=== PATIENT | female | born 1995 | race African-American/Black ===

== ENCOUNTER 2019-07-19 07:15 | Inpatient (IN) | payer MEDICARE, MEDICAID, SELFPAY ==
[2019-07-19] VITALS (16 sets, daily range): BP systolic 103–144; BP diastolic 64–113; PULSE 68–134; RESP 14–28; TEMP 36.8–38.2; O2SAT 93–100
--- NOTE | ~2019-07-19 | XR_ITS ---
XR chest 1V portable DATE: 07/19/2019 08:36 INDICATION: Chest pain TECHNIQUE: Portable upright AP chest on 07/19/2019 at 0831 hours; gonadal shielding COMPARISON: 06/28/2019 portable AP chest at 0814 hours FINDINGS: Right Port-A-Cath catheter tip overlies the superior cavoatrial junction. Normal heart size . No hilar or mediastinal enlargement. There is mild infiltrate or atelectasis in the right lower lung zone. The lungs otherwise appear dank r. Minimal blunting of the right gastric angle may indicate slight right pleural effusion. The left c ostophrenic angle appears clear. No pulmonary vascular congestion or pneumothorax. IMPRESSION: Mild infiltrate or atelectasis in the right lower lung; cannot exclude minimal right pleu ral effusion Right Port-A-Cath Reviewed, dictated and finalized at location A. [facility] MANAGER IMPRESSION: Mild infiltrate or atelectasis in the right lower lung; cannot excl ude minimal right pleural effusion Right Port-A-Cath
--- NOTE | ~2019-07-19 | XR_ITS ---
EXAMINATION: XR hip LT min 2V EXAM DATE: 07/19/2019 19:32 INDICATION: Sickle cell crisis, left hip pain. TECHNIQUE: Each hip imaged independently (separate right and also left hip) 'frog leg' and frontal p rojections for interpretation. Right hip was imaged first by mistake, images retained. There is no prior study for comparison. FINDINGS: No radiographic evidence of hip avascular necrosis. There are no acute fractures or disloc ations identified. There is no subcutaneous gas. The soft tissue is unremarkable. There are no ra diopaque foreign bodies. IMPRESSION: Unremarkable hip exam. I tried phoning these results as requested by ordering doctor to evening Hospitalist. Reviewed, dictated and finalized at location A. [facility] IMPRESSION: Unremarkable hip exam. I tried phoning these results as requested by ordering doctor to evening Hospit ali.
[2019-07-19] MEDS: SODIUM CHLORIDE 0.9% IV 1,000 ML 999 ML IV CONT (07:50)
[2019-07-19 07:52] LABS: Hematocrit 21.8 % (37.0-47.0); Hemoglobin 7.1 g/dL (12.0-15.0); Immature Platelet Fraction Pct 5.2 % (0.9-11.2); Immature Reticulocyte Fraction 36.3 % (3.0-15.9); Mean Corpuscular HGB Conc 32.6 g/dl (32-36); Mean Corpuscular Hemoglobin 20.6 pg (26-34); Mean Corpuscular Volume 63.4 fl (80-100); Mean Platelet Volume 10.2 fl (7.4-10.4); Platelet Count Result 239 k/mm3 (150-375); Red Blood Count 3.44 M/mm3 (4.2-5.4); Red Cell Distribution Width 22.9 % (11.5-14.5); Reticulocyte Hemoglobin Conten 20.3 pg (28.2-35.7); Reticulocyte Percent 4.99 % (0.7-4.3); Reticulocytes Absolute 0.17 B/L (32.2-175.7); White Blood Count 15.6 K/mm3 (4.5-10.0)
[2019-07-19] MEDS: HYDROMORPHONE HCL 1 MG/ML INJ 2 MG IV PUSH ×4 (07:58→14:01)
[2019-07-19] MEDS: PROMETHAZINE HCL 25 MG/ML AMPUL 12.5 MG IV PUSH (07:58)
[2019-07-19 08:00] LABS: Partial Thromboplastin Time 31.4 SECONDS (22.3-36.8); Prothrombin Time 13.3 Seconds (11.1-14.7)
[2019-07-19 08:07] LABS: Lactate Dehydrogenase 892 U/L (313-618)
[2019-07-19 08:08] LABS: Eosinophils Absolute Manual 0.15 K/mm3 (0.02-0.5); Eosinophils Percent Manual 1 % (0-4); Monocytes Absolute Manual 1.09 K/mm3 (0.1-0.90); Monocytes Percent Manual 7 % (3-9); Neutrophils Percent Manual 67 % (46-73); Nucleated Red Blood Cells 20 %; Platelet Estimate Adequate (Adequate); Total Cells Counted 100
[2019-07-19 08:09] LABS: Alanine Aminotransferase 33 U/L (4-35); Albumin Level 4.1 g/dL (3.5-5.1); Alkaline Phosphatase 75 U/L (38-126); Anisocytosis 1+ (NORMAL); Aspartate Amino Transferase 46 U/L (14-36); Bilirubin,Total 1.2 mg/dL (0.2-1.3); Blood Urea Nitrogen 10 mg/dL (7-17); Calcium 8.8 mg/dL (8.4-10.2); Carbon Dioxide 25 mmol/L (22-30); Chloride 103 mmol/L (98-107); Estimated Glomerular Filt Rate > 60; Glucose 124 mg/dL (65-105); Hypochromasia 2+ (NORMAL); Poikilocytosis 2+ (NORMAL); Potassium 3.6 mmol/L (3.4-5.0); Sickle Cells 1+ (NORMAL); Sodium 136 mmol/L (137-145); Target Cells 2+ (NORMAL)
[2019-07-19 08:45] LABS: Troponin I < 0.012 ng/mL (0.000-0.034)
--- NOTE | 2019-07-19 09:09 | ED.GENADULT ---
HPI - General Adult General Chief complaint: Extremity Problem,Nontraumatic Stated complaint: sickle cell crisis Time Seen by Provider: 07/19/19 07:34 History of Present Illness HPI narrative: Patient is a 24 y/o AAF who p/w diffuse body. Has h/o sickle cell anemia. Follows with Dr. Kim. Has been here twice earlier this month. Compliant with home meds (hydroxyurea and oxycodone). Has been having flares due to cold weather, originally from [place]. Pain mainly located in the hips/thighs/shoulders but also involves the chest. No SOA/Cough/Fever at home. Sx started this morning abruptly. Anticoagulated due to h/o PE. Simple tasks such as sitting exacerbate her pain. Has been trying to keep moving because she is uncomfortable. Related Data Home Medications Medication Instructions Recorded Confirmed Xarelto 15 mg PO Q12H 06/28/19 07/19/19 folic acid 1 mg PO DAILY 06/28/19 07/19/19 hydroxyurea 500 mg PO Q12H 06/28/19 07/19/19 oxycodone 20 mg PO Q4H PRN 06/28/19 07/19/19 oxycodone [OxyContin] 20 mg PO Q12H 06/28/19 07/19/19 Allergies Allergy/AdvReac Type Severity Reaction Status Date / Time fentanyl Allergy Hives Verified 07/19/19 08:27 Review of Systems Review of Systems: All systems reviewed & are unremarkable except as noted in HPI and below Constitutional: Constitutional: Denies chills, Denies fever(s) and Denies weakness Cardiovascular: Cardiovascular: Reports chest pain and Denies radiating jaw, neck or arm pain Respiratory: Respiratory: Denies cough, Denies dyspnea and Denies wheezing Gastrointestinal: Gastrointestinal: Denies abdominal pain, Denies nausea and Denies vomiting Musculoskeletal: Musculoskeletal: Reports back pain, Reports myalgias, Reports arthralgias and Denies joint swelling [facility] Past Medical History Medical History Avascular necrosis of bones of both hips Constipation Eczema History of pulmonary embolus (PE) On Xarelto Port-A-Cath in place Right chest Pulmonary emboli Sickle cell anemia Surgical History Surgical History History of appendectomy History of cholecystectomy Family History Family History (Updated 07/19/19 @ 11:23 by Riccardo Herndon MD) Mother Sickle cell anemia Pulmonary embolism Social History Social History Social History: She is attending college here and is studying [employer]. 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 She has no children. She is single. She does not smoke or drink or use illicit drugs. Smoking status: Former smoker Second hand tobacco smoke exposure: Yes Additional smoking assessment comments: uncertain Alcohol intake: current Drinks per week: 1 Substance use: former Substance use type: marijuana Last use: unknown Gender identity (if verbalized by the patient): Female Spiritual care concerns: No Agree to blood products: Yes Exam Const: General: healthy appearing, well developed and alert Orientation/consciousness: patient oriented x3 Limitations: no limitations Other: Anxious and distressed. Tearful. HENMT: Head: normocephalic and atraumatic Ears: external ears normal General nose exam: Normal external nose present Mouth: Yes oropharynx normal and Yes moist mucous membranes Resp: Effort & Inspection: normal respiratory effort and able to speak in complete sentences Auscultation: clear to auscultation bilaterally Cardio: Rate: tachycardic Rhythm: regular rhythm Peripheral pulses: radial pulses present GI: GI Palp: Yes Soft to palpation, No Tenderness to palpation present (GI) and No Guarding due to palpation present (GI) Skin: General skin exam: normal color and no rashes or lesions noted Trauma: no lacerations or abrasions Wounds: no wounds Neuro: General: patient oriented x3 Speech: normal speech Extrem: G
[2019-07-19] MEDS: HYDROMORPHONE HCL 1 MG/ML INJ 4 MG IV PUSH (10:45)
--- NOTE | 2019-07-19 10:54 | PM.IMHP ---
H&P: HPI History of Present Illness Chief complaint: Sickle Cell Crisis Narrative: Jenny Cardenas is a 24 year old female with sickle cell disease and history of pulmonary embolus in April 2019 who was in her usual state of health until about 1:00 a.m. this morning. She awakened with pain in the lateral ribs upper arms thighs and ankles. It was 10/10 intensity. 220 mg oxycodone tablets gave her no relief so she called 911. Pain is described as DKA aching. Worse if she holds still. Better with movement. She had no fevers chills or sweats. No shortness of breath cough or congestion. No anterior chest pain no GI symptoms. No headaches. No weakness or numbness. No skin changes or rashes. She has chronic itching with her narcotic use. Review of Systems Review of Systems: All systems reviewed & are unremarkable except as noted in HPI and below PMFSH Past Medical History Medical History Avascular necrosis of bones of both hips Constipation Eczema History of pulmonary embolus (PE) On Xarelto Port-A-Cath in place Right chest Pulmonary emboli Sickle cell anemia Surgical History Surgical History History of appendectomy History of cholecystectomy Family History Family History (Updated 07/19/19 @ 11:23 by Riccardo Herndon MD) Mother Sickle cell anemia Pulmonary embolism Social History Social History (Updated 06/28/19 @ 13:49 by Minna Rodriguez NP) Social History: She is attending college here and is studying [employer]. 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 She has no children. She is single. She does not smoke or drink or use illicit drugs. Smoking status: Former smoker Second hand tobacco smoke exposure: Yes Additional smoking assessment comments: uncertain Alcohol intake: current Drinks per week: 1 Substance use: former Substance use type: marijuana Last use: unknown Gender identity (if verbalized by the patient): Female Spiritual care concerns: No Agree to blood products: Yes Meds Home Medications and Allergies Home Medications Medication Instructions Recorded Confirmed Type Xarelto 15 mg PO Q12H 06/28/19 06/28/19 History folic acid 1 mg PO DAILY 06/28/19 06/28/19 History hydroxyurea 500 mg PO Q12H 06/28/19 06/28/19 History oxycodone 20 mg PO Q4H PRN 06/28/19 06/28/19 History oxycodone [OxyContin] 20 mg PO Q12H 06/28/19 06/28/19 History Allergies Allergy/AdvReac Type Severity Reaction Status Date / Time fentanyl Allergy Hives Verified 07/19/19 08:27 Vital Signs Vital Signs - 24 hr 07/19/19 07:15 07/19/19 10:20 Temperature 99.1 F Pulse Rate 134 H 75 Respiratory Rate 28 H 16 Blood Pressure 140/94 H 105/68 Pulse Oximetry 100 100 Exam Narrative: Exam Narrative: HEENT: EOMI, PERRL, pharyngeal mucosa pink and intact NECK: No JVD, adenopathy, or thyromegaly CHEST: Clear to auscultation. Normal effort. HEART: NL S1/S2, regular, no murmur ABDOMEN: BS+, soft, nontender, no mass, no bruits EXTREMITIES: No cyanosis, edema, or clubbing. Carotids radials and dorsalis pedis pulses all intact. NEUROLOGIC: CN intact and symmetric to inspection. MUSCULOSKELETAL: Tone and strength symmetric. PSYCH: Alert. Oriented to person, place, and time. H&P: Results Labs Labs: Short CBC 07/19/19 Range/Units 07:45 WBC 15.6 H (4.5-10.0) K/mm3 Hgb 7.1 L (12.0-15.0) g/dL Hct 21.8 L (37.0-47.0) % Plt Count 239 (150-375) k/mm3 BMP 07/19/19 07:45 Sodium 136 L Potassium 3.6 Chloride 103 Carbon Dioxide 25 BUN 10 D Creatinine 0.40 L Glucose 124 H Calcium 8.8 Cardiac Enzymes 07/19/19 Range/Units 07:43 Troponin I < 0.012 (0.000-0.034) ng/mL Liver Function 07/19/19 Range/Units 07:45 Total Bilirubin 1.2 (0.2-1.3) mg/dL AST 46 H (14-36) U/L ALT 33 (4-35
--- NOTE | 2019-07-19 10:58 | ADMGEN ---
This patient, Jenny Cardenas, was admitted to [facility] Surg Room 319-01. Patient/family oriented to hospital policies and general routines including ID bracelet, bed and alarms, visiting hours, pain management, procedures, bathroom and other care routines, personal items, smoking policy, room service/diet, and visiting hours. Valuables list has been completed. Information on how to activate the Rapid Response Team has been discussed. Patient/Family are encouraged to report perceived risks to care and to ask questions if they do not understand what they are told or what they should do.
[2019-07-19] MEDS: SODIUM CHLORIDE 0.9% IV 1,000 ML 125 ML IV CONT (12:15)
[2019-07-19] MEDS: HYDROMORPHONE HCL 2 MG/ML VIAL IV PUSH (14:37)
[2019-07-19 17:17] LABS: Hematocrit 20.9 % (37.0-47.0); Hemoglobin 6.8 g/dL (12.0-15.0)
[2019-07-19 17:39] LABS: Beta HCG Quantitative < 2.39 mIU/ML
[2019-07-19] MEDS: LORAZEPAM INJ 2 MG/ML VIAL 1 MG IV PUSH (18:05)
[2019-07-19] MEDS: MORPHINE SULFATE 4 MG/ML INJ IV PUSH (19:00)
--- NOTE | 2019-07-19 20:39 | PC.NURSE ---
Notified Jute Bag Cutting Machine Operator Suzy that the patient states that she can't say no to consenting to blood consent even if she wanted to because the hospital will do what we want regardless. Patient assured that the only way we will administer blood if if she gives consent and we are able to check her vital signs as needed to check for reactions. Patient signed consent to receive blood transfusion but still very upset.
--- NOTE | 2019-07-19 20:43 | PC.NURSE ---
Pt stated at 1030 that no one knows how to treat sickle cell crisis. She wishes she had gone to her film composer at [facility]. I called Dr. Herndon to inform him of her pain. When I went back into the room, she was on her phone, repeatedly telling her mom to call the film composer. Pt screaming, writhing, yelling in pain saying it is past 10/10. I pushed a one time order of 4 of dilaudid and tried to proceed with admission at which point she was falling asleep during answers. Dr Herndon came in and asked her questions and noted her response to the pain meds. She was always able to alert and answer appropriately. At 12:15 pt was screaming and yelling in pain again. She stated this hospital doesnt know how to treat someone in sickle cell crisis. I tried to reassure her that we were doing our best to help bring her pain under control. She stated she wanted her legs cut off. I brought in her PRN 2 mg dilaudid. It appeared to have worked as she fell asleep again. Lab came into draw cultures, but they could only get one because she couldnt stay still. She said she would comply if I gave bendaryl (she had been itching most of the morning, but I was trying to space it from the dilaudid). She refused the blood culture. She continued to talk about pain and I again let her know we were doing what we could for her. She began screaming/crying again at 1320. I talked with pt who stated that something was very wrong, that none of her crises had made her like this. I called Dr. Herndon who ordered another 2 mg one time dose of dilaudid and discussed the possibility of a RAW CHEESE WORKER pump if this didnt work. She was awake, screaming and crying even with this dose of dilaudid. At 1425 I talked with Katrina face to face; we discussed giving another dose of the PRN dilaudid and he would see her after one other patient. I gave the PRN dilaudid at 1437 and Katrina came in. He was empathetic to her and let her know that we would do an XRAY to evaluate the hip. The dilaudid did not seem to have any effect on her pain level. I let Dr. Herndon know and he put in orders for a morphine RAW CHEESE WORKER. I set it up with Suzie co-signing. The pt continued to talk about how were not treating her pain, and I let her know that when we got this in place she could help manage her pain. When checking on her for the hourly roundings, the pt did not seem to have any adverse effects, but continued to rate her pain high. I reminded her to press her button and that we were also providing relief through continuous dosing. Pt continued to stated that something was wrong and that something was in her hip. Pt started refusing vitals at 1630 when we needed to round on the medicine's effectiveness and POSS score. Critical H&H called to Dr. Herndon who order 2 units of blood. I informed the patient in order to give blood we would need to be able to get vitals to monitor her reaction. She said get my pain under control and you can take my vitals. I assured her we were still trying, reminded educating her to push her button. Dr. Herndon ordered ativan to help calm her nerves to see if she would comply with vitals. At 1845, she allowed Lincoln to take a set of vitals.
[2019-07-19] MEDS: POTASSIUM CHLORIDE INJ 40 MEQ in DEXTROSE 5% IN WATER 500 ML 130 ML IVPB (21:02)
--- NOTE | 2019-07-19 21:29 | PC.NURSE ---
Addendum entered by Suzy Mahmood RN 07/19/19 22:01: Patient declined to be contacted by patient advocate and refused to file formal complaint. Original Note: Asked to speak with patient to ensure she understood her rights and her ability to refuse treatment. Upon arrival to room, patient resting comfortably in bed. When asked if she had concerns about her care, patient stated all of you nurses and doctors think you know it all because you went to school . Patient upset because at home in [place], they know how to treat people with sickle cell disease . Patient stated that she has been dealing with her disease for 23 years and all of you think you know what is best . Patient feels that she is classified as a drug seeker because of her disease. Patient stated, all of you automatically think people with sickle cell are drug seekers . Patient assumed that because all of you have seen patients with sickle cell disease, we classify her the same and always have that thought in the back of your head . Patient stated patients with sickle cell disease are not treated as humans . Assured patient that appropriate treatment would be administered and that she also had the right to refuse treatment if she felt it was not appropriate. Asked patient if she felt she needed other treatment and if her pain was under control. Patient stated she did need further pain management. IAN Barbosa notified and will contact provider for additional orders.
--- NOTE | 2019-07-19 22:00 | PC.NURSE ---
Patient initially agreed to take her 1700 dose of Xarelto and her 2100 dose of Hydroxyurea but after a while she refused to take the pills because she hasn't eaten all day and isn't feeling well enough to eat anything right now.
[2019-07-20] VITALS (16 sets, daily range): BP systolic 105–152; BP diastolic 60–87; PULSE 18–100; RESP 16–99; TEMP 36.6–37.5; O2SAT 92–99
[2019-07-20 00:09] LABS: Add Urine Microscopic? NO; Appearance Urine Clear (Clear); Bilirubin Urine Negative (Negative); Blood Urine Negative (Negative); Color Urine Straw (Yellow); Glucose Urine UA Negative (Negative); Ketones Urine Negative (Negative); Leukocyte Esterase Ur Negative LEU/UL (Negative); Nitrate Urine Negative (Negative); Protein Urine Negative (Negative); Specific Grav Ur 1.008 (1.001-1.035); Urobilinogen Urine Negative mg/dL (<2.0)
[2019-07-20] MEDS: SODIUM CHLORIDE 0.9% IV 1,000 ML 125 ML IV CONT ×3 (01:15→20:21)
--- NOTE | 2019-07-20 06:24 | PC.NURSE ---
Patient refused to have her BP taken this morning because it would hurt her too much. Advised patient to use the EVIDENCE TECHNICIAN button in preparation for the BP reading but patient still refused. Reminded patient that her BP will have to be monitored when she receives the blood transfusion.
--- NOTE | 2019-07-20 10:14 | PC.NURSE ---
Patient refused medications this AM. Patient has orders to start blood. The patient agreed to have vitals taken but cried out in pain when the blood pressure cuff tightened and I was forced to remove it. I explained to the patient the importance of getting blood and the necessity of taking vitals beforehand. The patient still refused vitals to be taken. Dr. Herndon has been notified and no new orders have been given at this time.
--- NOTE | 2019-07-20 11:19 | PM.IMPN ---
Progress Note: A&P Assessment and Plan (1) Sickle cell crisis: Code(s): D57.00 - Hb-SS disease with crisis, unspecified Status: Acute Assessment and Plan: No sign of infection. Leukocytosis is likely demargination due to severe pain. Blood cultures pending. 07/19 PM Morphine WOOD GANG SAWYER at 1mg/hr with 0.8mg bolus q 10 min prn and 20mg max over 4 hours 07/19 hip x-rays without evidence for avascular necrosis 07/20 Increase morphine WOOD GANG SAWYER to 2mg/hr with 1mg bolus q 6 min prn and 24mg max over 4 hours (after 4mg IV bolus x 1) (2) History of pulmonary embolus (PE): Code(s): Z86.711 - Personal history of pulmonary embolism Status: Chronic Assessment and Plan: Continue Xarelto Subjective Date/time seen: 07/20/19 11:19 Interval history: Admitted 07/19 with SS crisis. Pain in arms, legs, lateral ribs. 07/20 not eating. Holding urine to minimize movement. Pain minimally improved. She recalls that previously WOOD GANG SAWYER was hydromorphone at 0.5mg/hr with 1mg bolus. Review of Systems Review of Systems: All systems reviewed & are unremarkable except as noted in HPI and below Exam Narrative: Exam Narrative: HEENT: EOMI, PERRL, pharyngeal mucosa pink and intact NECK: No JVD CHEST: Clear to auscultation. Normal effort. HEART: NL S1/S2, regular, no murmur ABDOMEN: BS+, soft, nontender, no mass, no bruits EXTREMITIES: No cyanosis, edema, or clubbing. Carotids radials and dorsalis pedis pulses all intact. NEUROLOGIC: CN intact and symmetric to inspection. MUSCULOSKELETAL: Tone and strength symmetric. PSYCH: Alert. Oriented to person, place, and time. Objective Data Vital Signs Vital Signs: Vital Signs - 24 hr 07/19/19 14:00 07/19/19 15:29 07/19/19 16:00 Temperature 99.8 F H 99.5 F Pulse Rate 75 88 Respiratory Rate 18 24 H 18 Blood Pressure 144/113 H Pulse Oximetry 93 99 100 07/19/19 16:30 07/19/19 18:51 07/19/19 19:07 Temperature 100.7 F H 100.7 F H Pulse Rate 96 Respiratory Rate 26 H 16 Blood Pressure 136/72 Pulse Oximetry 96 100 07/19/19 19:40 07/19/19 20:00 07/19/19 21:11 Temperature 100.3 F H 100.0 F H Pulse Rate 97 101 H Respiratory Rate 18 Blood Pressure 132/64 Pulse Oximetry 100 07/19/19 21:26 07/19/19 22:07 07/20/19 00:00 Temperature 99.3 F 99.1 F Pulse Rate 89 88 Respiratory Rate 18 Blood Pressure 114/80 Pulse Oximetry 99 07/20/19 04:00 07/20/19 06:23 07/20/19 09:52 Temperature 99.4 F Pulse Rate 91 97 Respiratory Rate 16 Blood Pressure Pulse Oximetry 98 94 Intake/Output Intake/Output: Intake & Output 07/17/19 07/18/19 07/19/19 07/20/19 23:59 23:59 23:59 23:59 Intake Total 2123.0 1228.5 Output Total 1900 Balance 2123.0 -671.5 Meds/Results Medications: Active Medications Generic Name Dose Route Start Last Admin Trade Name Freq PRN Reason Stop Dose Admin Acetaminophen 1,000 mg 07/19/19 14:39 Tylenol Tablet PO TID PRN Mild Pain (1-3) or Fever Diphenhydramine HCl 25 mg 07/19/19 11:15 07/19/19 22:26 Benadryl Inj IV PUSH 25 mg Q4H PRN Administration Itching Folic Acid 1 mg 07/20/19 09:00 Folic Acid PO DAILY CHRISTINA Hydroxyurea 500 mg 07/19/19 21:00 07/20/19 02:13 Hydrea PO Not Given Q12HR CHRISTINA Sodium Chloride 1,000 mls @ 125 mls/hr 07/19/19 09:25 07/20/19 05:19 Normal Saline Iv IV CONT 125 mls/hr .Q8H CHRISTINA Infusion Morphine Sulfate 30 mg in 30 mls @ 1 mls/hr 07/19/19 14:32 07/20/19 05:30 Morphine Sulfate Orange Picking Supervisor IV CONT 1 mls/hr .Q24H PRN 1 mls/hr WOOD GANG SAWYER Management Titration Protocol Per Protocol Lorazepam 1 mg 07/19/19 18:53 Ativan Inj IV PUSH Q6H PRN Anxiety Morphine Sulfate 4 mg 07/20/19 11:18 Morphine Sulfate Inj IV PUSH 07/20/19 11:19 ONCE ONE Multi-Ingredient Lotion 1 each 07/19/19 17:00 07/19/19 18:09 Lubriderm Lotion TOPICAL Not Given BID CHRISTINA Naloxone HCl 0.1 mg 07/19
[2019-07-20] MEDS: RIVAROXABAN 20 MG TABLET PO (17:41)
[2019-07-20] MEDS: LORAZEPAM INJ 2 MG/ML VIAL 1 MG IV PUSH (20:30)
[2019-07-20 21:26] LABS: Hematocrit 23.9 % (37.0-47.0); Hemoglobin 7.7 g/dL (12.0-15.0); Immature Platelet Fraction Pct 4.8 % (0.9-11.2); Mean Corpuscular HGB Conc 32.2 g/dl (32-36); Mean Corpuscular Hemoglobin 21.2 pg (26-34); Mean Corpuscular Volume 65.8 fl (80-100); Mean Platelet Volume 10.2 fl (7.4-10.4); Platelet Count Result 256 k/mm3 (150-375); Red Blood Count 3.63 M/mm3 (4.2-5.4); Red Cell Distribution Width 25.9 % (11.5-14.5); White Blood Count 9.4 K/mm3 (4.5-10.0)
[2019-07-20 21:35] LABS: Alanine Aminotransferase 25 U/L (4-35); Albumin Level 3.8 g/dL (3.5-5.1); Alkaline Phosphatase 62 U/L (38-126); Aspartate Amino Transferase 35 U/L (14-36); Bilirubin,Total 1.5 mg/dL (0.2-1.3); Blood Urea Nitrogen 5 mg/dL (7-17); Calcium 8.6 mg/dL (8.4-10.2); Carbon Dioxide 28 mmol/L (22-30); Chloride 99 mmol/L (98-107); Estimated CRCL calculation 168 ml/min; Estimated Glomerular Filt Rate > 60; Glucose 87 mg/dL (65-105); Lactate Dehydrogenase 976 U/L (313-618); Potassium 3.2 mmol/L (3.4-5.0); Sodium 135 mmol/L (137-145)
[2019-07-20] MEDS: HYDROXYUREA (*CHEMO) 500 MG CAPSULE PO (22:17)
[2019-07-20] MEDS: TUBING, BLOOD PLUM PUMP TUBING 1 EACH XX (23:00)
[2019-07-21] VITALS (15 sets, daily range): BP systolic 108–110; BP diastolic 65–70; PULSE 71–89; RESP 16; TEMP 36.6–37.2; O2SAT 96–99
[2019-07-21] MEDS: LORAZEPAM INJ 2 MG/ML VIAL 1 MG IV PUSH ×4 (04:00→21:59)
[2019-07-21] MEDS: SODIUM CHLORIDE 0.9% IV 1,000 ML 125 ML IV CONT ×3 (04:06→20:09)
[2019-07-21] MEDS: SODIUM CHLORIDE 0.9% IV 250 ML 30 ML (04:07)
[2019-07-21 06:36] LABS: Hematocrit 24.9 % (37.0-47.0); Hemoglobin 8.2 g/dL (12.0-15.0); Immature Platelet Fraction Pct 4.8 % (0.9-11.2); Immature Reticulocyte Fraction 40.9 % (3.0-15.9); Mean Corpuscular HGB Conc 32.9 g/dl (32-36); Mean Corpuscular Hemoglobin 22.5 pg (26-34); Mean Corpuscular Volume 68.2 fl (80-100); Mean Platelet Volume 9.7 fl (7.4-10.4); Platelet Count Result 218 k/mm3 (150-375); Red Blood Count 3.65 M/mm3 (4.2-5.4); Red Cell Distribution Width 27.4 % (11.5-14.5); Reticulocyte Hemoglobin Conten 20.7 pg (28.2-35.7); Reticulocyte Percent 4.77 % (0.7-4.3); Reticulocytes Absolute 0.17 B/L (32.2-175.7); White Blood Count 9.3 K/mm3 (4.5-10.0)
[2019-07-21 06:45] LABS: Alanine Aminotransferase 21 U/L (4-35); Albumin Level 3.2 g/dL (3.5-5.1); Alkaline Phosphatase 58 U/L (38-126); Aspartate Amino Transferase 30 U/L (14-36); Bilirubin,Total 1.1 mg/dL (0.2-1.3); Blood Urea Nitrogen 5 mg/dL (7-17); Calcium 8.1 mg/dL (8.4-10.2); Carbon Dioxide 25 mmol/L (22-30); Chloride 104 mmol/L (98-107); Estimated CRCL calculation 214 ml/min; Estimated Glomerular Filt Rate > 60; Glucose 102 mg/dL (65-105); Lactate Dehydrogenase 827 U/L (313-618); Potassium 3.4 mmol/L (3.4-5.0); Sodium 136 mmol/L (137-145)
--- NOTE | 2019-07-21 08:50 | PM.IMPN ---
Progress Note: A&P Assessment and Plan (1) Sickle cell crisis: Code(s): D57.00 - Hb-SS disease with crisis, unspecified Status: Acute Assessment and Plan: No sign of infection. Leukocytosis is likely demargination due to severe pain. Blood cultures pending. 07/19 PM Morphine BULK PIGMENT REDUCER at 1mg/hr with 0.8mg bolus q 10 min prn and 20mg max over 4 hours 07/19 hip x-rays without evidence for avascular necrosis 07/20 Increase morphine BULK PIGMENT REDUCER to 2mg/hr with 1mg bolus q 6 min prn and 24mg max over 4 hours (after 4mg IV bolus x 1) 07/20 PM Increase morphine BULK PIGMENT REDUCER to 3mg/hr 07/21 hgb 8.1 after 1 U PRBC 07/20, AST 30, bili 1.1, LDH 827, retic% 4.77 (trending down) 07/21 Increase morphine BULK PIGMENT REDUCER to 4mg/hr, 2mg bolus q 6 min prn, 30mg 4 hour lockout (2) History of pulmonary embolus (PE): Code(s): Z86.711 - Personal history of pulmonary embolism Status: Chronic Assessment and Plan: Continue Xarelto Subjective Date/time seen: 07/21/19 08:50 Interval history: Admitted 07/19 with SS crisis. Pain in arms, legs, lateral ribs. 07/20 not eating. Holding urine to minimize movement. Pain minimally improved. She recalls that previously BULK PIGMENT REDUCER was hydromorphone at 0.5mg/hr with 1mg bolus. 07/21 Pain still 8 on morphine 3mg/hr with 1mg bolus q 6 min prn and 24mg 4 hour lockout. Still c/o not sleeping well. Deep ache in thighs, arms, bilateral ribs. Tolerated transfusion. Tolerated diet. Review of Systems Review of Systems: All systems reviewed & are unremarkable except as noted in HPI and below Exam Narrative: Exam Narrative: HEENT: EOMI, PERRL, pharyngeal mucosa pink and intact NECK: No JVD CHEST: Clear to auscultation. Normal effort. HEART: NL S1/S2, regular, no murmur ABDOMEN: BS+, soft, nontender, no mass, no bruits EXTREMITIES: No cyanosis, edema, or clubbing. Carotids radials and dorsalis pedis pulses all intact. NEUROLOGIC: CN intact and symmetric to inspection. MUSCULOSKELETAL: Tone and strength symmetric. PSYCH: Alert. Oriented to person, place, and time. Objective Data Vital Signs Vital Signs: Vital Signs - 24 hr 07/20/19 09:52 07/20/19 12:00 07/20/19 14:00 Temperature 97.8 F Pulse Rate 92 93 Respiratory Rate 18 Blood Pressure 152/87 H Pulse Oximetry 94 98 07/20/19 15:06 07/20/19 15:27 07/20/19 16:00 Temperature 98.1 F 98.5 F Pulse Rate 99 94 100 Respiratory Rate 16 18 Blood Pressure 118/64 119/87 Pulse Oximetry 99 07/20/19 16:27 07/20/19 17:27 07/20/19 20:00 Temperature 98.1 F 99.5 F Pulse Rate 18 L 90 78 Respiratory Rate 99 H 18 18 Blood Pressure 110/74 110/70 Pulse Oximetry 92 99 98 07/20/19 22:00 07/20/19 23:38 07/20/19 23:54 Temperature 99.5 F 99.5 F Pulse Rate 72 70 Respiratory Rate 18 18 Blood Pressure 105/60 105/66 108/66 Pulse Oximetry 98 98 07/21/19 00:00 07/21/19 00:54 07/21/19 01:54 Temperature 99.0 F Pulse Rate 89 78 Respiratory Rate Blood Pressure 110/65 110/65 110/70 Pulse Oximetry 07/21/19 04:00 07/21/19 06:00 Temperature 98.4 F Pulse Rate 85 81 Respiratory Rate Blood Pressure 110/70 Pulse Oximetry Intake/Output Intake/Output: Intake & Output 07/18/19 07/19/19 07/20/19 07/21/19 23:59 23:59 23:59 23:59 Intake Total 2123.0 3802.1 1867 Output Total 3900 1400 Balance 2123.0 -97.9 467 Meds/Results Medications: Active Medications Generic Name Dose Route Start Last Admin Trade Name Freq PRN Reason Stop Dose Admin Acetaminophen 1,000 mg 07/19/19 14:39 Tylenol Tablet PO TID PRN Mild Pain (1-3) or Fever Diphenhydramine HCl 25 mg 07/19/19 11:15 07/21/19 08:05 Benadryl Inj IV PUSH 25 mg Q4H PRN Administration Itching Folic Acid 1 mg 07/20/19 09:00 07/20/19 15:15 Folic Acid PO Not Given DAILY REPLACED BY [facility] Heparin Sodium (Beef Lung) 50 units 07/21/19 09:00 Heparin Flush 50 Units/5 Ml IV PUSH QAM REPLACED BY [facility] Heparin Sodium (Beef Lung) 50 units 07/21/19 07:32
[2019-07-21] MEDS: HYDROXYUREA (*CHEMO) 500 MG CAPSULE PO ×2 (08:59→20:09)
[2019-07-21] MEDS: FOLIC ACID 1 MG TABLET PO (09:05)
--- NOTE | 2019-07-21 12:25 | PCNSR ---
On 07/21/19, the student, Rosa Tovar, provided care and completed [facility] documentation on this patient. I have reviewed the student's documentation and agree with the findings.
[2019-07-21] MEDS: RIVAROXABAN 20 MG TABLET PO (17:27)
[2019-07-22] VITALS (8 sets, daily range): BP systolic 100–107; BP diastolic 52–73; PULSE 71–103; RESP 16–20; TEMP 36.6–37; O2SAT 94–100
[2019-07-22] MEDS: SODIUM CHLORIDE 0.9% IV 1,000 ML 125 ML IV CONT ×3 (03:54→21:30)
[2019-07-22] MEDS: LORAZEPAM INJ 2 MG/ML VIAL 1 MG IV PUSH ×4 (03:55→21:30)
[2019-07-22 06:04] LABS: Hematocrit 25.2 % (37.0-47.0); Hemoglobin 8.3 g/dL (12.0-15.0); Mean Corpuscular HGB Conc 32.9 g/dl (32-36); Mean Corpuscular Volume 66.8 fl (80-100); Mean Platelet Volume 9.1 fl (7.4-10.4); Platelet Count Result 229 k/mm3 (150-375); Red Blood Count 3.77 M/mm3 (4.2-5.4); Red Cell Distribution Width 26.7 % (11.5-14.5); White Blood Count 7.5 K/mm3 (4.5-10.0)
[2019-07-22 06:09] LABS: Alanine Aminotransferase 20 U/L (4-35); Albumin Level 3.6 g/dL (3.5-5.1); Alkaline Phosphatase 65 U/L (38-126); Aspartate Amino Transferase 28 U/L (14-36); Bilirubin,Total 1.1 mg/dL (0.2-1.3); Blood Urea Nitrogen 4 mg/dL (7-17); Calcium 8.7 mg/dL (8.4-10.2); Carbon Dioxide 26 mmol/L (22-30); Chloride 102 mmol/L (98-107); Estimated CRCL calculation 168 ml/min; Estimated Glomerular Filt Rate > 60; Glucose 90 mg/dL (65-105); Lactate Dehydrogenase 768 U/L (313-618); Potassium 3.7 mmol/L (3.4-5.0); Sodium 136 mmol/L (137-145)
[2019-07-22] MEDS: HYDROXYUREA (*CHEMO) 500 MG CAPSULE PO ×2 (09:53→21:31)
[2019-07-22] MEDS: FOLIC ACID 1 MG TABLET PO (09:53)
--- NOTE | 2019-07-22 16:23 | PM.IMPN ---
Progress Note: A&P Assessment and Plan (1) Sickle cell crisis: Code(s): D57.00 - Hb-SS disease with crisis, unspecified Status: Acute Assessment and Plan: No sign of infection. Leukocytosis is likely demargination due to severe pain. Blood cultures pending. 07/19 PM Morphine DOG SITTER at 1mg/hr with 0.8mg bolus q 10 min prn and 20mg max over 4 hours 07/19 hip x-rays without evidence for avascular necrosis 07/20 Increase morphine DOG SITTER to 2mg/hr with 1mg bolus q 6 min prn and 24mg max over 4 hours (after 4mg IV bolus x 1) 07/20 PM Increase morphine DOG SITTER to 3mg/hr 07/21 hgb 8.1 after 1 U PRBC 07/20, AST 30, bili 1.1, LDH 827, retic% 4.77 (trending down) 07/21 Increase morphine DOG SITTER to 4mg/hr, 2mg bolus q 6 min prn, 30mg 4 hour lockout 07/22 CPM possible minimally better, LDH and retic (2) History of pulmonary embolus (PE): Code(s): Z86.711 - Personal history of pulmonary embolism Status: Chronic Assessment and Plan: Continue Xarelto Subjective Date/time seen: 07/22/19 16:23 Interval history: Date of visit 07/21/19 Admitted 07/19 with SS crisis. Pain in arms, legs, lateral ribs. 07/20 not eating. Holding urine to minimize movement. Pain minimally improved. She recalls that previously DOG SITTER was hydromorphone at 0.5mg/hr with 1mg bolus. 07/21 Pain still 8 on morphine 4mg/hr with 1mg bolus q 6 min prn and 24mg 4 hour lockout. Still c/o not sleeping well. Deep ache in thighs, arms, bilateral ribs. Tolerated transfusion. Tolerated diet. Exam Narrative: Exam Narrative: Blood pressure 106/55 afebrile HEENT: EOMI, PERRL, sclera anicteric NECK: No JVD CHEST: Clear to auscultation. Normal effort. HEART: NL S1/S2, regular, no murmur ABDOMEN: BS+, soft, nontender, no mass, no bruits EXTREMITIES: No cyanosis, edema, or clubbing. Carotids radials and dorsalis pedis pulses all intact. NEUROLOGIC: CN intact and symmetric to inspection. MUSCULOSKELETAL: Tone and strength symmetric. PSYCH: Alert. Oriented to person, place, and time. Objective Data Vital Signs Vital Signs: Vital Signs - 24 hr 07/21/19 20:00 07/21/19 23:35 07/22/19 00:00 Temperature Pulse Rate 71 Respiratory Rate 16 16 Blood Pressure Pulse Oximetry 99 98 07/22/19 03:57 07/22/19 04:00 07/22/19 08:00 Temperature 36.6 C Pulse Rate 76 90 Respiratory Rate 16 20 Blood Pressure 102/60 Pulse Oximetry 98 98 07/22/19 10:00 07/22/19 14:00 Temperature 37.0 C Pulse Rate 87 85 Respiratory Rate 17 17 Blood Pressure 107/73 106/55 L Pulse Oximetry 100 100 Intake/Output Intake/Output: Intake & Output 07/19/19 07/20/19 07/21/19 07/22/19 23:59 23:59 23:59 23:59 Intake Total 2123.0 3802.1 4877 3100 Output Total 3900 2825 1700 Balance 2123.0 -97.9 2052 1400 Meds/Results Medications: Active Medications Generic Name Dose Route Start Last Admin Trade Name Freq PRN Reason Stop Dose Admin Acetaminophen 1,000 mg 07/19/19 14:39 Tylenol Tablet PO TID PRN Mild Pain (1-3) or Fever Diphenhydramine HCl 25 mg 07/19/19 11:15 07/22/19 15:20 Benadryl Inj IV PUSH 25 mg Q4H PRN Administration Itching Folic Acid 1 mg 07/20/19 09:00 07/22/19 09:53 Folic Acid PO 1 mg DAILY CHRISTINA Administration Heparin Sodium (Beef Lung) 50 units 07/21/19 09:00 07/22/19 10:52 Heparin Flush 50 Units/5 Ml IV PUSH Not Given QAM CHRISTINA Heparin Sodium (Beef Lung) 50 units 07/21/19 07:32 Heparin Flush 50 Units/5 Ml IV PUSH PRN PRN after intermittent infusion Heparin Sodium (Beef Lung) 50 units 07/21/19 07:32 Heparin Flush 50 Units/5 Ml IV PUSH PRN PRN after blood draws Heparin Sodium (Porcine) 500 units 07/21/19 07:32 Heparin Sod Flush 100 Units/Ml IV PUSH PRN PRN see comments below Hydroxyurea 500 mg 07/19/19 21:00 07/22/19 09:53 Hydrea PO 500 mg Q12HR CHRISTINA Administration Sodium Chloride 1,000 mls @ 125 mls/hr 07/19/19 09:25 07/22/19
[2019-07-22] MEDS: RIVAROXABAN 20 MG TABLET PO (17:27)
[2019-07-23] VITALS: RESP 16; O2SAT 94
[2019-07-23] MEDS: LORAZEPAM INJ 2 MG/ML VIAL 1 MG IV PUSH ×2 (03:02→09:44)
[2019-07-23 04:00] VITALS: RESP 16; O2SAT 99
[2019-07-23] MEDS: SODIUM CHLORIDE 0.9% IV 1,000 ML 125 ML IV CONT (05:28)
[2019-07-23 05:56] LABS: Alanine Aminotransferase 22 U/L (4-35); Albumin Level 3.9 g/dL (3.5-5.1); Alkaline Phosphatase 68 U/L (38-126); Aspartate Amino Transferase 31 U/L (14-36); Bilirubin,Total 1.1 mg/dL (0.2-1.3); Blood Urea Nitrogen 7 mg/dL (7-17); Calcium 9.1 mg/dL (8.4-10.2); Carbon Dioxide 27 mmol/L (22-30); Chloride 99 mmol/L (98-107); Estimated CRCL calculation 168 ml/min; Estimated Glomerular Filt Rate > 60; Glucose 99 mg/dL (65-105); Lactate Dehydrogenase 739 U/L (313-618); Potassium 3.9 mmol/L (3.4-5.0); Sodium 135 mmol/L (137-145)
[2019-07-23 06:05] LABS: Hemoglobin 8.3 g/dL (12.0-15.0); Immature Platelet Fraction Pct 4.7 % (0.9-11.2); Immature Reticulocyte Fraction 20.8 % (3.0-15.9); Mean Corpuscular HGB Conc 31.9 g/dl (32-36); Mean Corpuscular Hemoglobin 21.8 pg (26-34); Mean Corpuscular Volume 68.2 fl (80-100); Platelet Count Result 235 k/mm3 (150-375); Red Blood Count 3.81 M/mm3 (4.2-5.4); Red Cell Distribution Width 26.9 % (11.5-14.5); Reticulocyte Hemoglobin Conten 19.6 pg (28.2-35.7); Reticulocyte Percent 2.82 % (0.7-4.3); Reticulocytes Absolute 0.11 B/L (32.2-175.7); White Blood Count 7.1 K/mm3 (4.5-10.0)
[2019-07-23 08:00] VITALS: RESP 16; O2SAT 99
[2019-07-23] MEDS: HYDROXYUREA (*CHEMO) 500 MG CAPSULE PO (09:47)
[2019-07-23] MEDS: FOLIC ACID 1 MG TABLET PO (09:47)
[2019-07-23 11:42] VITALS: BP 105/86; PULSE 100; RESP 16; TEMP 37; O2SAT 100
[2019-07-23] MEDS: HEPARIN SOD FLUSH 500 UNITS/5 ML SYRINGE IV PUSH (12:08)
--- NOTE | 2019-07-23 18:31 | PM.DS ---
DS: Diagnosis Admitting Diagnosis Admitting Diagnosis: Hb-SS disease with crisis, unspecified Discharge Diagnosis (1) Sickle cell crisis: Code(s): D57.00 - Hb-SS disease with crisis, unspecified Status: Acute Assessment and Plan: No sign of infection. Leukocytosis is likely demargination due to severe pain. Blood cultures pending. 07/19 PM Morphine COMMUNITY RELATIONS REP at 1mg/hr with 0.8mg bolus q 10 min prn and 20mg max over 4 hours 07/19 hip x-rays without evidence for avascular necrosis 07/20 Increase morphine COMMUNITY RELATIONS REP to 2mg/hr with 1mg bolus q 6 min prn and 24mg max over 4 hours (after 4mg IV bolus x 1) 07/20 PM Increase morphine COMMUNITY RELATIONS REP to 3mg/hr 07/21 hgb 8.1 after 1 U PRBC 07/20, AST 30, bili 1.1, LDH 827, retic% 4.77 (trending down) 07/21 Increase morphine COMMUNITY RELATIONS REP to 4mg/hr, 2mg bolus q 6 min prn, 30mg 4 hour lockout 07/22 CPM possible minimally better, LDH and retic 07/23 patient continues to improve and affect much better. Up walking the halls and hemoglobin stable at 8.3 with reticulocyte count lower and LDH down to 735. Patient requesting to be discharged with recent in her family. She seems stable in her pain seems much better today. She states she has adequate oral pain medication at home and will discharge her home. (2) History of pulmonary embolus (PE): Code(s): Z86.711 - Personal history of pulmonary embolism Status: Chronic Assessment and Plan: Continue Xarelto 20 mg daily. DS: Summary Hospital Course Hospital Course: 24-year-old black female with sickle cell anemia admitted in crisis with no obvious precipitating factor. Slowly improved with hydration and narcotic pain control. Hemoglobin stabilized at 8.3, she was up about taken a diet well and able to be discharged on the She will follow-up with her capital campaign fundraiser Dr. Kim Time Spent with Patient Time attestation: Total time spent providing and/or coordinating discharge services: 35 minutes Exam Narrative: Exam Narrative: Condition on discharge: Blood pressure 104/56 pulse is 60 Pupils equal reactive to light sclera anicteric Lungs clear CV regular rate rhythm Abdomen soft nontender Extremities trace edema if any in the in the feet Neuro alert cooperative more pleasant today, affect DS: Data Data Completed and Pending Labs on day of discharge: Labs from last 24 hours 07/23/19 07/23/19 05:27 05:27 WBC 7.1 RBC 3.81 L Hgb 8.3 L Hct 26.0 L MCV 68.2 L MCH 21.8 L MCHC 31.9 L RDW 26.9 H Plt Count 235 MPV 10.0 % Immature Plt Fraction 4.7 Absolute Retic 0.11 L Percent Retic 2.82 Immature Retic Fraction 20.8 H Retic Hgb Content 19.6 L Sodium 135 L Potassium 3.9 Chloride 99 Carbon Dioxide 27 BUN 7 Creatinine 0.40 L Estim Creat Clear Calc 168 Estimated GFR > 60 Glucose 99 Calcium 9.1 Total Bilirubin 1.1 AST 31 ALT 22 Alkaline Phosphatase 68 Lactate Dehydrogenase 739 H Total Protein 8.0 Albumin 3.9 Preliminary micro results at discharge 07/19/19 16:50 Blood Culture - Preliminary Blood 07/19/19 12:10 Blood Culture - Preliminary Blood Discharge Plan Discharge Attending physician on discharge: Sae Lora Discharging Clinician: Sae Lora Patient Disposition: Home, Self-Care Activity: as tolerated Diet: regular Patient Instructions: Antibiotic Form, Pain Management (DC), Sickle Cell Crisis (DC) Stand Alone Forms: General Discharge Information Follow-up/Referrals: UNKNOWN,DOCTOR [Primary Care Provider] - 2 Weeks Discharge Medications: New Xarelto 20 mg Tablet 20 mg PO DAILY@1700 Qty: 30 RF: 0 Continued hydroxyurea 500 mg Capsule 500 mg PO Q12H RF: 0 folic acid 1 mg Tablet 1 mg PO DAILY RF: 0 oxycodone 20 mg Tablet 20 mg PO Q4H PRN (Reason: Pain) RF: 0 oxycodone [OxyContin] 20 mg Tablet,Oral Only,Ext.Rel.12 Hr 20 mg PO Q12H RF: 0 Discontinued Xarelto
== END 2019-07-23 12:26 | disposition home or self-care (01) | DRG 812 ==
LOC: ANHED 10:08 → ANH3MEDSUR 10:10
PROVIDERS: Physician Assistant; Admitting Provider Internal Medicine; Emergency Provider Emergency Medicine; Visit Provider Internal Medicine
DX: D57.00 Hb-SS disease with crisis, unspecified (principal); L30.9 Dermatitis, unspecified; Z90.49 Acquired absence of other specified parts of digestive tract; Z86.711 Personal history of pulmonary embolism; Z79.01 Long term (current) use of anticoagulants; Z87.891 Personal history of nicotine dependence
CPT/HCPCS: 36415; 36430; 71045; 73502; 80053; 81003; 83615; 84484; 84702; 85014; 85018; 85025; 85027; 85046; 85055; 85610; 85730; 86850; 86900; 86901; 86902; 86923; 87040; 96361; 96374; 96375; 96376; 99285; A9270; G0378; J0131; J1170; J1200; J2060; J2270; J2550; J3480; J7030; J7050; J7060; P9016

== ENCOUNTER 2019-07-25 08:56 | Emergency (ER) | payer MEDICARE, SELFPAY ==
[2019-07-25 09:13] VITALS: BP 128/88; PULSE 81; RESP 18; TEMP 37; O2SAT 100
[2019-07-25 09:15] VITALS: RESP 18; O2SAT 100
--- NOTE | 2019-07-25 09:17 | ED.GENADULT ---
HPI - General Adult General Chief complaint: Unspecified Stated complaint: SICKLE CELL CRISIS Time Seen by Provider: 07/25/19 09:01 Source: patient and RN notes reviewed Mode of arrival: ambulatory Limitations: no limitations History of Present Illness HPI narrative: Pt is a 24 y/o -[place] female with a Hx of sickle cell anemia, who presents to the ED with c/o sickle cell pain starting roughly 1 week ago and worsening since yesterday. She notes that she was evaluated here for her pain on 07/19/19, and states that she was admitted to the hospital for several days before returning home on 07/23/19. Pt notes that she received several units of blood while in the hospital. She states that her pain had mildly alleviated after receiving the blood, but notes that her pain worsened yesterday. Pt states that she chronically takes Oxycodone 20 mg and OxyContin 20 mg for her pain, but notes that these medications are no longer alleviating her symptoms. She states that her pain is mainly located in her bilateral arms and legs. Pt also reports a fever as of last night and vomiting, but denies any diarrhea or rectal bleeding. She states that she is currently taking Xarelto. complaint: Sickle Cell Pain Onset (ago): week(s) (1) Location: upper extremity (bilateral arms) and lower extremity (bilateral legs) Pain Consistency: other (worsened since yesterday) Associated symptoms: fever/chills (fever) and nausea/vomiting (vomiting) Related Data Home Medications Medication Instructions Recorded Confirmed folic acid 1 mg PO DAILY 06/28/19 07/19/19 hydroxyurea 500 mg PO Q12H 06/28/19 07/19/19 oxycodone 20 mg PO Q4H PRN 06/28/19 07/19/19 oxycodone [OxyContin] 20 mg PO Q12H 06/28/19 07/19/19 Allergies Allergy/AdvReac Type Severity Reaction Status Date / Time fentanyl Allergy Hives Verified 07/19/19 08:27 Review of Systems Review of Systems: All systems reviewed & are unremarkable except as noted in HPI and below Constitutional: Constitutional: Reports fever(s) Gastrointestinal: Gastrointestinal: Denies hematochezia, Denies diarrhea and Reports vomiting Musculoskeletal: Musculoskeletal: Reports other (bilateral arm pain; bilateral leg pain) PMFSH Past Medical History Medical History Avascular necrosis of bones of both hips Constipation Eczema History of pulmonary embolus (PE) On Xarelto Port-A-Cath in place Right chest Pulmonary emboli Sickle cell anemia Surgical History Surgical History History of appendectomy History of cholecystectomy Family History Family History (Updated 07/19/19 @ 11:23 by Riccardo Herndon MD) Mother Sickle cell anemia Pulmonary embolism Social History Social History Social History: She is attending college here and is studying [employer]. 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 She has no children. She is single. She does not smoke or drink or use illicit drugs. Smoking status: Former smoker Second hand tobacco smoke exposure: Yes Additional smoking assessment comments: uncertain Alcohol intake: current Drinks per week: 1 Substance use: former Substance use type: marijuana Last use: unknown Gender identity (if verbalized by the patient): Female Spiritual care concerns: No Agree to blood products: Yes Exam Narrative: Exam Narrative: GENERAL: Well-appearing, well-nourished, and in no acute distress. HEAD: Normocephalic, atraumatic NOSE: Nares clear, no rhinorrhea or epistaxis THROAT:Mucous membranes moist, Oropharynx normal without erythema, exudate, peritonsillar swelling or fluctuance NECK: Supple, without lymphadenopathy or mass RESPIRATORY: No respiratory distress, Airway patent, Respirations non-labored, Clear to auscultation without rales, rhonchi or wheeze HEART: Regular rate and
--- NOTE | 2019-07-25 09:57 | PC.NURSE ---
attempted to draw blood with no success. notified RN.
[2019-07-25] MEDS: HYDROMORPHONE HCL 1 MG/ML INJ 2 MG IV PUSH (10:02)
[2019-07-25] MEDS: ONDANSETRON INJ 4 MG/2 ML VIAL IV PUSH (10:11)
[2019-07-25] MEDS: LACTATED RINGERS 1,000 ML 999 ML IV CONT (10:11)
[2019-07-25 10:27] LABS: Basophils Percent Auto 0.5 % (0.2-1.2); Eosinophils Absolute Auto 0.1 K/mm3 (0-0.3); Eosinophils Percent Auto 1.7 % (0-4.4); Hematocrit 29.2 % (37.0-47.0); Hemoglobin 9.4 g/dL (12.0-15.0); Immature Granulocyte Absolute 0.15 K/mm3 (0.00-0.031); Immature Granulocyte Percent A 1.8 % (0-0.5); Immature Platelet Fraction Pct 5.5 % (0.9-11.2); Immature Reticulocyte Fraction 15.1 % (3.0-15.9); Lymphocytes Absolute Auto 1.78 K/mm3 (0.9-3.2); Lymphocytes Percent Auto 21.9 % (18.3-44.2); Mean Corpuscular HGB Conc 32.2 g/dl (32-36); Mean Corpuscular Hemoglobin 21.6 pg (26-34); Mean Corpuscular Volume 67.1 fl (80-100); Mean Platelet Volume 9.5 fl (7.4-10.4); Monocytes Absolute Auto 0.7 K/mm3 (0.1-0.6); Neutrophils Absolute Auto 5.4 K/mm3 (1.3-6.7); Neutrophils Percent Auto 66.1 % (45.5-73.1); Nucleated Red Blood Cells Absolute Auto 0.7 K/mm3 (0.0-0.012); Nucleated Red Blood Cells Perc 8.7 % (0.0-0.2); Platelet Count Result 279 k/mm3 (150-375); Red Blood Count 4.35 M/mm3 (4.2-5.4); Red Cell Distribution Width 27.7 % (11.5-14.5); Reticulocyte Hemoglobin Conten 21.8 pg (28.2-35.7); Reticulocyte Percent 2.57 % (0.7-4.3); Reticulocytes Absolute 0.11 B/L (32.2-175.7); White Blood Count 8.1 K/mm3 (4.5-10.0)
[2019-07-25 10:34] LABS: INR 1.1; Prothrombin Time 13.6 Seconds (11.1-14.7)
[2019-07-25 10:35] LABS: Partial Thromboplastin Time 41.3 SECONDS (22.3-36.8)
[2019-07-25 10:36] LABS: Add Urine Microscopic? NO; Appearance Urine Clear (Clear); Bilirubin Urine Negative (Negative); Blood Urine Negative (Negative); Color Urine Yellow (Yellow); Glucose Urine UA Negative (Negative); Ketones Urine Negative (Negative); Leukocyte Esterase Ur Negative LEU/UL (Negative); Nitrate Urine Negative (Negative); Protein Urine Negative (Negative); Specific Grav Ur 1.012 (1.001-1.035); Urobilinogen Urine Negative mg/dL (<2.0)
[2019-07-25 10:38] LABS: Alanine Aminotransferase 30 U/L (4-35); Albumin Level 4.8 g/dL (3.5-5.1); Alkaline Phosphatase 95 U/L (38-126); Aspartate Amino Transferase 45 U/L (14-36); Bilirubin,Total 1.4 mg/dL (0.2-1.3); Blood Urea Nitrogen 10 mg/dL (7-17); Calcium 9.8 mg/dL (8.4-10.2); Carbon Dioxide 27 mmol/L (22-30); Chloride 99 mmol/L (98-107); Estimated CRCL calculation 206 ml/min; Estimated Glomerular Filt Rate > 60; Glucose 99 mg/dL (65-105); Potassium 3.8 mmol/L (3.4-5.0); Sodium 137 mmol/L (137-145)
[2019-07-25 10:41] LABS: Anisocytosis 1+ (NORMAL); Platelet Estimate Adequate (Adequate)
[2019-07-25 10:42] LABS: Sickle Cells 1+ (NORMAL); Target Cells 3+ (NORMAL)
[2019-07-25] MEDS: HYDROMORPHONE HCL 1 MG/ML INJ IV PUSH (11:34)
[2019-07-25 12:56] VITALS: BP 117/80; PULSE 84; RESP 16; O2SAT 100
[2019-07-25] MEDS: HEPARIN SOD FLUSH 500 UNITS/5 ML SYRINGE (13:01)
== END 2019-07-25 12:57 | disposition home or self-care (01) ==
PROVIDERS: Emergency Provider General Practice
DX: D57.00 Hb-SS disease with crisis, unspecified (principal); Z87.891 Personal history of nicotine dependence; Z77.22 Contact with and (suspected) exposure to environmental tobacco smoke (acute) (chronic); M87.9 Osteonecrosis, unspecified; Z86.711 Personal history of pulmonary embolism; Z79.01 Long term (current) use of anticoagulants
CPT/HCPCS: 36415; 80053; 81003; 81025; 85025; 85046; 85055; 85610; 85730; 86850; 86900; 86901; 96361; 96374; 96375; 96376; 99284; J1170; J1200; J2405; J7120

== ENCOUNTER 2019-07-27 11:38 | Emergency (ER) | payer MEDICARE, MEDICAID, SELFPAY ==
--- NOTE | ~2019-07-27 | XR_ITS ---
XR chest 2V 07/27/2019 12:38 Indication: Shortness of breath and chest pain. Sickle cell pain. Procedure: 2 view chest Comparison: 07/19/2019 Findings: Portacatheter tip in the SVC. Heart size normal. No focal pneumonia, edema, pleural effusio n or pneumothorax. No significant osseous abnormality. Impression: 1: No acute cardiopulmonary disease. Reviewed, dictated and finalized at location A. FACTURE SPECIALIST Impression: 1: No acute cardiopulmonary disease.
[2019-07-27 11:50] VITALS: BP 106/78; PULSE 95; RESP 16; TEMP 36.6; O2SAT 96
--- NOTE | 2019-07-27 12:14 | ED.GENADULT ---
HPI - General Adult General Chief complaint: Unspecified Stated complaint: sickle cell pain Time Seen by Provider: 07/27/19 12:14 Source: patient Mode of arrival: ambulatory Limitations: no limitations History of Present Illness HPI narrative: A 24 y/o female presents to the ED with c/o sickle cell pain in her LLE and bilateral arms. Pt describes the pain as sharp and shooting. Pt took a hot shower at home with no relief. Pt states it feels like my bones are locking. Pt rates the pain as a 10/10 in severity. Pt states she was treated in the ED 2 weeks ago for the same complaints and had a blood transfusion. Pt was d/c home with some pain medication that she has taken with no relief. Pt sees loss prevention lead Dr. Kim in [place] but states that she recently moved to [place]. Pt normally takes Oxycodone and Oxycontin at home. Pt ran out of her Oxycontin prescription and can't get in to see her doctor until 08/04/2019. She reports a 100.4 degree F fever, but denies a cough, a sore throat, and dysuria. Severity scale (1-10): 10 Quality: sharp and other (shooting) Relieving factors: none Related Data Home Medications Medication Instructions Recorded Confirmed folic acid 1 mg PO DAILY 06/28/19 07/19/19 hydroxyurea 500 mg PO Q12H 06/28/19 07/19/19 oxycodone 20 mg PO Q4H PRN 06/28/19 07/19/19 oxycodone [OxyContin] 20 mg PO Q12H 06/28/19 07/19/19 Allergies Allergy/AdvReac Type Severity Reaction Status Date / Time fentanyl Allergy Hives Verified 07/27/19 11:57 Review of Systems Review of Systems: Narrative: Constitutional: Positive for 100.4 degree F fever. HENT: Negative for congestion, sore throat. Respiratory: Negative for cough and shortness of breath. Genitourinary: Negative for dysuria and hematuria. Musculoskeletal: Positive for sickle cell pain in LLE and bilateral arms. All systems reviewed & are unremarkable except as noted in HPI and below PMFSH Past Medical History Medical History Avascular necrosis of bones of both hips Constipation Eczema History of pulmonary embolus (PE) On Xarelto Port-A-Cath in place Right chest Pulmonary emboli Sickle cell anemia Surgical History Surgical History History of appendectomy History of cholecystectomy Family History Family History Mother Sickle cell anemia Pulmonary embolism Social History Social History Social History: She is attending college here and is studying [employer]. 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 She has no children. She is single. She does not smoke or drink or use illicit drugs. Smoking status: Former smoker Second hand tobacco smoke exposure: Yes Additional smoking assessment comments: uncertain Alcohol intake: current Drinks per week: 1 Substance use: former Substance use type: marijuana Last use: unknown Gender identity (if verbalized by the patient): Female Spiritual care concerns: No Agree to blood products: Yes Comments No PCP on file. Exam Narrative: Exam Narrative: Constitutional: Appears well-developed. No distress. Head: Normocephalic. Nose: Nose normal. Eyes: Conjunctiva are normal. Neck: Normal range of motion. Neck supple. Cardiovascular: Tachycardic, regular rhythm. Pulmonary/Chest: Effort normal and breath sounds normal. Abdominal: Soft. There is no tenderness. Musculoskeletal: Normal range of motion. No edema. Neurological: Alert and oriented to person, place, and time. Skin: Skin is warm. No pallor. Psychiatric: Anxious. Normal affect. Course Consultations Consultation #1: Discussed case with Dr. Anderson and recommends consulting the pt's loss prevention lead since the pt is still complaining of pain and is requesting to be admitted. Date: 07/27/19 Time:
--- NOTE | 2019-07-27 12:38 | PC.NURSE ---
PT TO XRAY VIA STRETCHER
[2019-07-27] MEDS: SODIUM CHLORIDE 0.9% IV 1,000 ML 999 ML IV CONT (12:49)
[2019-07-27] MEDS: MORPHINE SULFATE 4 MG/ML INJ IV PUSH ×3 (12:50→17:49)
[2019-07-27] MEDS: KETOROLAC 15 MG/ML VIAL (*BKC) IV PUSH (12:50)
[2019-07-27 12:52] LABS: Basophils Absolute Auto 0.1 K/mm3 (0.0-0.1); Basophils Percent Auto 0.8 % (0.2-1.2); Eosinophils Absolute Auto 0.1 K/mm3 (0-0.3); Eosinophils Percent Auto 0.9 % (0-4.4); Hematocrit 30.4 % (37.0-47.0); Hemoglobin 9.7 g/dL (12.0-15.0); Immature Granulocyte Absolute 0.07 K/mm3 (0.00-0.031); Immature Granulocyte Percent A 0.9 % (0-0.5); Immature Platelet Fraction Pct 5.1 % (0.9-11.2); Lymphocytes Absolute Auto 1.65 K/mm3 (0.9-3.2); Lymphocytes Percent Auto 21.4 % (18.3-44.2); Mean Corpuscular HGB Conc 31.9 g/dl (32-36); Mean Corpuscular Hemoglobin 21.7 pg (26-34); Mean Corpuscular Volume 67.9 fl (80-100); Mean Platelet Volume 10.2 fl (7.4-10.4); Monocytes Absolute Auto 0.9 K/mm3 (0.1-0.6); Monocytes Percent Auto 11.4 % (2.6-8.5); Neutrophils Percent Auto 64.6 % (45.5-73.1); Nucleated Red Blood Cells Absolute Auto 1.1 K/mm3 (0.0-0.012); Nucleated Red Blood Cells Perc 14.5 % (0.0-0.2); Platelet Count Result 348 k/mm3 (150-375); Red Blood Count 4.48 M/mm3 (4.2-5.4); Red Cell Distribution Width 27.3 % (11.5-14.5); White Blood Count 7.7 K/mm3 (4.5-10.0)
[2019-07-27 12:53] LABS: Add Urine Microscopic? NO; Appearance Urine Clear (Clear); Bilirubin Urine Negative (Negative); Blood Urine Negative (Negative); Color Urine Yellow (Yellow); Glucose Urine UA Negative (Negative); Ketones Urine Negative (Negative); Leukocyte Esterase Ur Negative LEU/UL (Negative); Nitrate Urine Negative (Negative); Protein Urine Negative (Negative); Specific Grav Ur 1.013 (1.001-1.035); Urobilinogen Urine Negative mg/dL (<2.0)
[2019-07-27 12:55] LABS: Immature Reticulocyte Fraction 19.5 % (3.0-15.9); Reticulocyte Hemoglobin Conten 21.7 pg (28.2-35.7); Reticulocyte Percent 1.68 % (0.7-4.3); Reticulocytes Absolute 0.07 B/L (32.2-175.7)
[2019-07-27 13:03] LABS: Alanine Aminotransferase 28 U/L (4-35); Albumin Level 4.7 g/dL (3.5-5.1); Alkaline Phosphatase 87 U/L (38-126); Aspartate Amino Transferase 38 U/L (14-36); Bilirubin,Total 1.1 mg/dL (0.2-1.3); Blood Urea Nitrogen 10 mg/dL (7-17); Calcium 9.9 mg/dL (8.4-10.2); Carbon Dioxide 27 mmol/L (22-30); Chloride 103 mmol/L (98-107); Estimated CRCL calculation 160 ml/min; Estimated Glomerular Filt Rate > 60; Glucose 102 mg/dL (65-105); Potassium 3.3 mmol/L (3.4-5.0); Sodium 139 mmol/L (137-145)
[2019-07-27 13:05] VITALS: BP 101/65; PULSE 80; RESP 13; O2SAT 97
[2019-07-27 13:13] LABS: Sickle Cells 1+ (NORMAL)
[2019-07-27 13:14] LABS: Large Platelets Present; Platelet Estimate Increased (Adequate); Polychromasia 1+ (NORMAL); Target Cells 3+ (NORMAL)
[2019-07-27 14:06] VITALS: BP 102/58; PULSE 80; RESP 14; O2SAT 100
--- NOTE | 2019-07-27 14:06 | PC.NURSE ---
PT RESTING ON STRETCHER PLAYING ON PHONE, STATES MY PAIN IS A 10/10, THAT MED YOU GAVE ME DIDNT HELP. EDP AWARE.
[2019-07-27] MEDS: POTASSIUM CHLORIDE 20 MEQ TABLET PO (16:52)
[2019-07-27 16:53] VITALS: BP 106/63; PULSE 89; RESP 13; O2SAT 100
[2019-07-27] MEDS: HEPARIN SOD FLUSH 500 UNITS/5 ML SYRINGE (17:50)
[2019-07-27 17:54] VITALS: BP 108/69; PULSE 89; RESP 14; O2SAT 97
== END 2019-07-27 17:54 | disposition home or self-care (01) ==
PROVIDERS: Emergency Provider Emergency Medicine
DX: D57.00 Hb-SS disease with crisis, unspecified (principal); M87.9 Osteonecrosis, unspecified; Z86.711 Personal history of pulmonary embolism; Z79.01 Long term (current) use of anticoagulants
CPT/HCPCS: 36415; 71046; 80053; 81003; 81025; 85025; 85046; 85055; 96361; 96374; 96375; 96376; 99284; A9270; J1885; J2270; J7030

== ENCOUNTER 2019-08-06 14:11 | Emergency (ER) | payer MEDICARE, OTHER, SELFPAY ==
[2019-08-06 15:42] VITALS: BP 120/80; PULSE 129; RESP 16; TEMP 36.9; O2SAT 98
--- NOTE | 2019-08-06 17:41 | ED.EXTPRO ---
HPI - Extremity Problem General Chief complaint: Unspecified Stated complaint: sickle cell crisis Time Seen by Provider: 08/06/19 17:29 Source: patient Mode of arrival: ambulatory Limitations: no limitations History of Present Illness HPI Narrative: The pt is a 24 y/o female who presents to the ED c/o sickle cell crisis onset two days ago. Pt states that she has a PMHx of sickle cell, and that the pain is constantly present in the BUE and BLE. Pt states that her prescription Oxycodone 20 mg is not working. She states that she called her tennis professional, Dr. Kim, who recommended she come to the ED. Pt denies fever, chills, and N/V. Complaint: other (Sickle cell crisis) Onset (ago): day(s) (2) Pain Consistency: constant Location: upper extremity (Bilateral) and lower extremity (Bilateral) Relieving factors: nothing Associated symptoms: denies other symptoms Related Data Home Medications Medication Instructions Recorded Confirmed folic acid 1 mg PO DAILY 06/28/19 07/19/19 hydroxyurea 500 mg PO Q12H 06/28/19 07/19/19 oxycodone 20 mg PO Q4H PRN 06/28/19 07/19/19 oxycodone [OxyContin] 20 mg PO Q12H 06/28/19 07/19/19 Allergies Allergy/AdvReac Type Severity Reaction Status Date / Time fentanyl Allergy Hives Verified 07/27/19 11:57 Review of Systems Review of Systems: All systems reviewed & are unremarkable except as noted in HPI and below Constitutional: Constitutional: Denies chills and Denies fever(s) Gastrointestinal: Gastrointestinal: Denies nausea and Denies vomiting Musculoskeletal: Musculoskeletal: Reports other (BUE/BLE pain ) [facility] Past Medical History Medical History Avascular necrosis of bones of both hips Constipation Eczema History of pulmonary embolus (PE) On Xarelto Port-A-Cath in place Right chest Pulmonary emboli Sickle cell anemia Surgical History Surgical History History of appendectomy History of cholecystectomy Social History Social History Social History: She is attending college here and is studying [employer]. 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 She has no children. She is single. She does not smoke or drink or use illicit drugs. Smoking status: Former smoker Second hand tobacco smoke exposure: Yes Additional smoking assessment comments: uncertain Alcohol intake: current Drinks per week: 1 Substance use: former Substance use type: marijuana Last use: unknown Gender identity (if verbalized by the patient): Female Spiritual care concerns: No Agree to blood products: Yes Exam Narrative: Exam Narrative: GENERAL: Well-appearing, well-nourished, and in mild distress sec to pain HEAD: Normocephalic, atraumatic. EYES: PERRLA and EOMI. ENT: Nares clear, no rhinorrhea or epistaxis. Mucous membranes moist. NECK: Supple. CHEST: Clear to auscultation. No respiratory distress. HEART: Regular rate and rhythm. No murmur heard. Normal peripheral pulses. ABDOMEN: Soft, nontender, nondistended, normal active bowel sounds. EXTREMITIES: Normal range of motion. No edema. SKIN: Warm, dry, no rash. NEURO: No focal deficits. Alert and oriented x3. PSYCH: Normal mood and affect. Course Course Emergency Course: Inform patient about her lab work, offered admission for pain control however patient states that the pain is slightly getting better and she can manage at home. Vital Signs Vital signs: Vital Signs Temperature 36.9 C 08/06/19 15:42 Pulse Rate 129 H 08/06/19 15:42 Respiratory Rate 16 08/06/19 15:42 Blood Pressure 120/80 08/06/19 15:42 Pulse Oximetry 98 08/06/19 15:42 Temperature 36.7 C 08/06/19 20:17 Pulse Rate 76 08/06/19 20:17 Respiratory Rate 18 08/06/19 20:17 Blood Pressure 112/88 08/06/19 20:17 Pulse Oximetry 100 08/06/19 20:17
[2019-08-06 17:50] VITALS: BP 126/82; PULSE 65; RESP 16; O2SAT 99
[2019-08-06] MEDS: HYDROMORPHONE HCL 1 MG/ML INJ IV PUSH ×2 (18:26→20:42)
[2019-08-06 18:32] LABS: Hematocrit 30.4 % (37.0-47.0); Immature Reticulocyte Fraction 24.2 % (3.0-15.9); Mean Corpuscular HGB Conc 32.9 g/dl (32-36); Mean Corpuscular Hemoglobin 21.9 pg (26-34); Mean Corpuscular Volume 66.5 fl (80-100); Mean Platelet Volume 9.6 fl (7.4-10.4); Platelet Count Result 340 k/mm3 (150-375); Red Blood Count 4.57 M/mm3 (4.2-5.4); Red Cell Distribution Width 26.7 % (11.5-14.5); Reticulocyte Hemoglobin Conten 23.5 pg (28.2-35.7); Reticulocytes Absolute 0.11 B/L (32.2-175.7)
[2019-08-06 18:43] LABS: Alanine Aminotransferase 39 U/L (4-35); Alkaline Phosphatase 95 U/L (38-126); Aspartate Amino Transferase 43 U/L (14-36); Bilirubin,Total 1.5 mg/dL (0.2-1.3); Blood Urea Nitrogen 9 mg/dL (7-17); Calcium 9.8 mg/dL (8.4-10.2); Carbon Dioxide 24 mmol/L (22-30); Chloride 101 mmol/L (98-107); Estimated CRCL calculation 164 ml/min; Estimated Glomerular Filt Rate > 60; Glucose 89 mg/dL (65-105); Sodium 138 mmol/L (137-145)
[2019-08-06 18:50] LABS: White Blood Count 11.1 K/mm3 (4.5-10.0)
[2019-08-06 18:56] LABS: Total Cells Counted 100
[2019-08-06 18:57] LABS: Lymphocytes Absolute Manual 3.55 K/mm3 (1.1-4.5); Lymphocytes Percent Manual 32 % (18-44); Metamyelocytes Percent 1 %; Monocytes Absolute Manual 0.55 K/mm3 (0.1-0.90); Monocytes Percent Manual 5 % (3-9); Neutrophils Percent Manual 62 % (46-73); Nucleated Red Blood Cells 32 %; Platelet Estimate Adequate (Adequate)
[2019-08-06 18:58] LABS: Ovalocytes 1+ (NORMAL); Poikilocytosis 1+ (NORMAL); Sickle Cells 1+ (NORMAL); Target Cells 3+ (NORMAL)
[2019-08-06 19:04] LABS: Add Urine Microscopic? NO; Appearance Urine Clear (Clear); Bilirubin Urine Negative (Negative); Blood Urine Negative (Negative); Color Urine Yellow (Yellow); Glucose Urine UA Negative (Negative); Ketones Urine Negative (Negative); Leukocyte Esterase Ur Negative LEU/UL (Negative); Nitrate Urine Negative (Negative); Protein Urine Negative (Negative); Specific Grav Ur 1.013 (1.001-1.035); Urobilinogen Urine Negative mg/dL (<2.0)
[2019-08-06 20:17] VITALS: BP 112/88; PULSE 76; RESP 18; TEMP 36.7; O2SAT 100
[2019-08-06 21:12] VITALS: TEMP 36.7
--- NOTE | 2019-08-06 21:33 | PC.NURSE ---
Heparin used for port flush while discontinuing access.
[2019-08-06 21:34] VITALS: BP 111/69; PULSE 71; RESP 18; TEMP 36.7; O2SAT 100
== END 2019-08-06 21:37 | disposition home or self-care (01) ==
PROVIDERS: Emergency Provider Family Medicine
DX: D57.00 Hb-SS disease with crisis, unspecified (principal); Z87.891 Personal history of nicotine dependence; Z86.711 Personal history of pulmonary embolism; Z79.01 Long term (current) use of anticoagulants; M87.9 Osteonecrosis, unspecified
CPT/HCPCS: 36415; 80053; 81003; 85025; 85046; 96374; 96375; 96376; 99284; J1170; J1200

== ENCOUNTER 2019-08-07 14:03 | Inpatient (IN) | payer MEDICARE, MEDICAID, SELFPAY ==
[2019-08-07] VITALS (8 sets, daily range): BP systolic 110–127; BP diastolic 76–90; PULSE 79–100; RESP 15–19; TEMP 36.6; O2SAT 98–100; BMI 19.6
--- NOTE | ~2019-08-07 | XR_ITS ---
EXAMINATION: XR hip BI 2V w AP pelvis DATE: 08/07/2019 20:04 INDICATION: Bilateral hip pain, history of sickle cell disease TECHNIQUE: AP view the pelvis and two views of each hip were obtained. COMPARISON: 07/19/2019 FINDINGS: Bone alignment is normal. There is no fracture. The femoral heads are well-seated in their acetabula. No radiographic evidence of avascular necrosis is seen. The soft tissues are unremarkable. IMPRESSION: 1. Normal examination. Reviewed, dictated and finalized at location A. LE INSTALLER IMPRESSION: 1. Normal examination.
--- NOTE | 2019-08-07 15:22 | PC.NURSE ---
Patient has port and refused to let RN attempt blood draw x2. pt waiting in waiting room for exam room in ED
--- NOTE | 2019-08-07 16:46 | ED.GENADULT ---
HPI - General Adult General Chief complaint: Unspecified <Yonis Messer PA-C - Last Filed: 08/07/19 19:22> Stated complaint: Sickle Cell Crisis <HERMINIA Padron Last Filed: 08/07/19 19:22> Time Seen by Provider: 08/07/19 16:11 <HERMINIA Padron Last Filed: 08/07/19 19:22> Source: patient <HERMINIA Padron Last Filed: 08/07/19 19:22> Mode of arrival: ambulatory <HERMINIA Padron Last Filed: 08/07/19 19:22> Limitations: no limitations <Yonis Messer PA-C - Last Filed: 08/07/19 19:22> History of Present Illness HPI narrative: Patient is a 24-year-old female who presents to emergency department for evaluation of pain to the upper and lower extremities with history of sickle cell disease has been taking her pain medication as instructed as well as her other medications and was instructed by her specialist to return to the emergency department after being evaluated yesterday and discharged home due to continued pain. Patient denies any illness or other complaints notes that she has had a few episodes of emesis which she attributed to doubling her pain medication patient on arrival is in the room in no distress. <HERMINIA Padron Last Filed: 08/07/19 19:22> Related Data Home medications: Home Medications Medication Instructions Recorded Confirmed folic acid 1 mg PO DAILY 06/28/19 07/19/19 hydroxyurea 500 mg PO Q12H 06/28/19 07/19/19 oxycodone 20 mg PO Q4H PRN 06/28/19 07/19/19 oxycodone [OxyContin] 20 mg PO Q12H 06/28/19 07/19/19 <HERMINIA Padron Last Filed: 08/07/19 19:22> Allergies/adverse reactions: Allergies Allergy/AdvReac Type Severity Reaction Status Date / Time fentanyl Allergy Hives Verified 07/27/19 11:57 <HERMINIA Padron Last Filed: 08/07/19 19:22> Review of Systems Review of Systems: Narrative: CONSTITUTIONAL: Denies fever, chills, or sweats. EYES: Denies visual changes, redness, or discharge. ENT: Denies rhinorrhea, congestion, sore throat, or otalgia. CARDIOVASCULAR: Denies chest pain, palpitations, or edema. RESPIRATORY: Denies cough or dyspnea. GASTROINTESTINAL: Denies abdominal pain, nausea, or diarrhea. GENITOURINARY: Denies dysuria or hematuria. SKIN: Denies rash or itching. MUSCULOSKELETAL: Denies back pain; positive for joint pain and myalgia of the extremities NEUROLOGIC: Denies numbness, dizziness, or weakness. <Yonis Messer PA-C - Last Filed: 08/07/19 19:22> PMFSH Past Medical History Medical History: Medical History Avascular necrosis of bones of both hips Constipation Eczema History of pulmonary embolus (PE) On Xarelto Port-A-Cath in place Right chest Pulmonary emboli Sickle cell anemia <Yonis Messer PA-C - Last Filed: 08/07/19 19:22> Surgical History Surgical History: Surgical History History of appendectomy History of cholecystectomy <Yonis Messer PA-C - Last Filed: 08/07/19 19:22> Social History Social History: Social History Social History: She is attending college here and is studying [employer]. 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 She has no children. She is single. She does not smoke or drink or use illicit drugs. Smoking status: Former smoker Second hand tobacco smoke exposure: Yes Additional smoking assessment comments: uncertain Alcohol intake: current Drinks per week: 1 Substance use: former Substance use type: marijuana Last use: unknown Gender identity (if verbalized by the patient): Female Spiritual care concerns: No Agree to blood products: Yes <Yonis Messer PA-C - Last Filed: 08/07/19 19:22> Exam Narrative: Exam Narrative: GENERAL: Well-appearing, well-nourished, and in no
[2019-08-07] MEDS: LACTATED RINGERS 1,000 ML 999 ML IV CONT ×2 (17:14→18:01)
[2019-08-07] MEDS: HYDROMORPHONE HCL 2 MG/ML VIAL IV PUSH (17:17)
[2019-08-07 17:22] LABS: Hematocrit 30.6 % (37.0-47.0); Hemoglobin 9.9 g/dL (12.0-15.0); Immature Platelet Fraction Pct 5.9 % (0.9-11.2); Mean Corpuscular HGB Conc 32.4 g/dl (32-36); Mean Corpuscular Hemoglobin 21.4 pg (26-34); Mean Corpuscular Volume 66.2 fl (80-100); Mean Platelet Volume 9.5 fl (7.4-10.4); Platelet Count Result 333 k/mm3 (150-375); Red Blood Count 4.62 M/mm3 (4.2-5.4); Red Cell Distribution Width 26.5 % (11.5-14.5); White Blood Count 11.4 K/mm3 (4.5-10.0)
[2019-08-07 17:31] LABS: Alanine Aminotransferase 34 U/L (4-35); Alkaline Phosphatase 94 U/L (38-126); Aspartate Amino Transferase 41 U/L (14-36); Bilirubin,Total 1.5 mg/dL (0.2-1.3); Blood Urea Nitrogen 8 mg/dL (7-17); Calcium 9.6 mg/dL (8.4-10.2); Carbon Dioxide 20 mmol/L (22-30); Chloride 101 mmol/L (98-107); Estimated Glomerular Filt Rate > 60; Glucose 80 mg/dL (65-105); Lactate Dehydrogenase 717 U/L (313-618); Potassium 4.2 mmol/L (3.4-5.0); Sodium 137 mmol/L (137-145)
[2019-08-07 17:32] LABS: Lactic Acid Reflex 0.6 mmol/L (0.7-2.1)
[2019-08-07 17:39] LABS: Eosinophils Absolute Manual 0.34 K/mm3 (0.02-0.5); Eosinophils Percent Manual 3 % (0-4); Lymphocytes Absolute Manual 3.53 K/mm3 (1.1-4.5); Monocytes Absolute Manual 1.02 K/mm3 (0.1-0.90); Monocytes Percent Manual 9 % (3-9); Neutrophils Percent Manual 57 % (46-73); Nucleated Red Blood Cells 22 %; Total Cells Counted 100
[2019-08-07 17:40] LABS: Platelet Estimate Adequate (Adequate); Target Cells 2+ (NORMAL)
[2019-08-07 17:41] LABS: Anisocytosis 3+ (NORMAL); Sickle Cells 1+ (NORMAL)
[2019-08-07 17:42] LABS: Hypochromasia 1+ (NORMAL)
[2019-08-07] MEDS: FAMOTIDINE 20 MG/2 ML VIAL IV PUSH (18:01)
[2019-08-07] MEDS: HYDROMORPHONE HCL 1 MG/ML INJ IV PUSH ×2 (18:01→22:27)
--- NOTE | 2019-08-07 19:21 | PC.NURSE ---
Pt care assumed by IAN trinh at this time after bedside report.
[2019-08-07] MEDS: MORPHINE SULFATE 4 MG/ML INJ IV PUSH (20:12)
--- NOTE | 2019-08-07 21:04 | ADMGEN ---
This patient, Jenny Cardenas, was admitted to 2 Medical Room 2052. Patient/family oriented to hospital policies and general routines including ID bracelet, bed and alarms, visiting hours, pain management, procedures, bathroom and other care routines, personal items, smoking policy, room service/diet, and visiting hours. Valuables list has been completed. Information on how to activate the Rapid Response Team has been discussed. Patient/Family are encouraged to report perceived risks to care and to ask questions if they do not understand what they are told or what they should do.
[2019-08-07] MEDS: LACTATED RINGERS 1,000 ML 125 ML IV CONT (21:29)
--- NOTE | 2019-08-07 23:10 | PC.NURSE ---
Pt refused blood draws unless avani did them with an ultrasound machine. Notified Renate Cassidy, she stated to pass it along to day shift.
[2019-08-07] MEDS: LORATADINE 10 MG TABLET PO (23:52)
[2019-08-08] VITALS (7 sets, daily range): BP systolic 93–115; BP diastolic 53–70; PULSE 20–95; RESP 16–100; TEMP 36.2–36.8; O2SAT 78–100
--- NOTE | 2019-08-08 00:45 | PM.IMHP ---
H&P: HPI History of Present Illness Chief complaint: Acute pain. 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 She is known to the hospitalist service as she was admitted to us twice in the month of June with acute pain episodes. She is followed by Dr. Kim in [place], and she is typically able to manage her pain with oxycodone 20 milligrams q.4 hours as needed. Over the last several days, she believes due to weather, her pain has become acutely worse. She spoke with Dr. Kim and was told to double the dose of her oxycodone, however the patient suffered significant nausea and vomiting from that increase in dose. She was seen emergency department yesterday, and was able to be sent home after receiving treatment of her pain. She felt okay when she was discharge, however not long thereafter her pain returned. She describes severe sharp, shooting and deep aching bone pain, mainly from the left hip and into the left thigh. She has pain elsewhere, but not as severe as in the left leg. At the time my evaluation she rates the pain 7-8/10. She did have some nausea and vomiting early but that has since resolved. No current chest pain or shortness of breath. She believe she had a slight fever yesterday morning but that has since resolved. Review of Systems Review of Systems: All systems reviewed & are unremarkable except as noted in HPI and below PMFSH Past Medical History Medical History (Updated 08/08/19 @ 02:10 by Renate Cassidy PA-C) Eczema History of pulmonary embolus (PE) On Xarelto Port-A-Cath in place Right chest Sickle cell anemia Hemoglobin-SS disease. Surgical History Surgical History History of appendectomy History of cholecystectomy Family History Family History Mother Sickle cell anemia Pulmonary embolism Social History Social History (Updated 08/08/19 @ 02:08 by Renate Cassidy PA-C) Social History: The patient is originally from [place], [place]. She now lives in [place] and attends [employer] where shes studies [employer]. She has no children. She is single. She smoked for a couple of years. She denies alcohol and illicit drug use. Additional smoking assessment comments: Last use: Spiritual care concerns: No Agree to blood products: Yes Meds Home Medications and Allergies Home Medications Medication Instructions Recorded Confirmed Type folic acid 1 mg PO DAILY 06/28/19 08/07/19 History hydroxyurea 500 mg PO Q12H 06/28/19 08/07/19 History oxycodone 20 mg PO Q4H PRN 06/28/19 08/07/19 History oxycodone [OxyContin] 20 mg PO Q12H 06/28/19 08/07/19 History rivaroxaban [Xarelto] 20 mg PO DAILY@1700 #30 tablet 07/23/19 08/07/19 Rx Allergies Allergy/AdvReac Type Severity Reaction Status Date / Time fentanyl Allergy Hives Verified 07/27/19 11:57 Vital Signs Vital Signs - 24 hr 08/07/19 15:09 08/07/19 17:21 08/07/19 17:22 Temperature 98 F Pulse Rate 100 97 97 Respiratory Rate 19 15 Blood Pressure 126/81 127/86 Pulse Oximetry 100 99 08/07/19 18:06 08/07/19 18:57 08/07/19 20:21 Temperature Pulse Rate 79 86 89 Respiratory Rate 18 18 17 Blood Pressure 114/90 121/83 122/82 Pulse Oximetry 100 100 98 08/07/19 21:10 08/07/19 22:47 Temperature 97.9 F Pulse Rate 79 79 Respiratory Rate 18 18 Blood Pressure 110/76 Pulse Oximetry 100 100 Exam Narrative: Exam Narrative: General: A well-developed female lying on her left side in bed in moderate pain. HEENT: Normocephalic, atraumatic. PERRL, EOMI. Sclerae anicteric. Oral mucosa moist. Neck: Supple. Respiratory: Lungs are clear to auscultation bilaterally. Car
[2019-08-08] MEDS: HYDROMORPHONE HCL 1 MG/ML INJ IV PUSH (00:46)
[2019-08-08] MEDS: HYDROXYUREA (*CHEMO) 500 MG CAPSULE PO ×3 (02:59→21:14)
[2019-08-08] MEDS: LACTATED RINGERS 1,000 ML 125 ML IV CONT ×2 (05:38→15:06)
[2019-08-08 06:26] LABS: Basophils Percent Auto 0.3 % (0.2-1.2); Eosinophils Absolute Auto 0.2 K/mm3 (0-0.3); Eosinophils Percent Auto 2.4 % (0-4.4); Hematocrit 21.4 % (37.0-47.0); Hemoglobin 7.1 g/dL (12.0-15.0); Immature Granulocyte Absolute 0.07 K/mm3 (0.00-0.031); Immature Granulocyte Percent A 0.7 % (0-0.5); Lymphocytes Absolute Auto 3.82 K/mm3 (0.9-3.2); Lymphocytes Percent Auto 39.4 % (18.3-44.2); Mean Corpuscular HGB Conc 33.2 g/dl (32-36); Mean Corpuscular Volume 66.3 fl (80-100); Mean Platelet Volume 10.2 fl (7.4-10.4); Monocytes Absolute Auto 1.1 K/mm3 (0.1-0.6); Monocytes Percent Auto 11.2 % (2.6-8.5); Neutrophils Absolute Auto 4.5 K/mm3 (1.3-6.7); Nucleated Red Blood Cells Absolute Auto 0.9 K/mm3 (0.0-0.012); Nucleated Red Blood Cells Perc 9.3 % (0.0-0.2); Platelet Count Result 231 k/mm3 (150-375); Red Blood Count 3.23 M/mm3 (4.2-5.4); Red Cell Distribution Width 25.8 % (11.5-14.5); White Blood Count 9.7 K/mm3 (4.5-10.0)
[2019-08-08 08:33] LABS: Hypochromasia 3+ (NORMAL); Platelet Estimate Adequate (Adequate); Stomatocytes 2+ (NORMAL)
[2019-08-08] MEDS: FAMOTIDINE 20 MG/2 ML VIAL IV PUSH ×2 (09:31→21:14)
--- NOTE | 2019-08-08 09:41 | PM.IMPN ---
Progress Note: A&P Assessment and Plan (1) Sickle cell crisis: Code(s): D57.00 - Hb-SS disease with crisis, unspecified Status: Acute Assessment and Plan: Increased basal morphine to 2 milligrams/hour 1 unit packed red cells Follow up daily labs (2) History of pulmonary embolus (PE): Code(s): Z86.711 - Personal history of pulmonary embolism Status: Chronic Assessment and Plan: Continue Xarelto Subjective Date/time seen: 08/08/19 09:41 Interval history: Pain located in high and hip. Deep aching. Similar to her common sickle cell pain. No chest pain or abdominal pain. No nausea vomiting. No abnormal bleeding. No bowel or bladder changes. No shortness of breath. No fevers or chills. Exam Narrative: Exam Narrative: HEENT: EOMI, PERRL, pharyngeal mucosa pink and intact NECK: No JVD CHEST: Clear to auscultation. Normal effort. HEART: NL S1/S2, regular, no murmur ABDOMEN: BS+, soft, nontender, no mass, no bruits EXTREMITIES: No cyanosis, edema, or clubbing NEUROLOGIC: CN intact and symmetric to inspection. MUSCULOSKELETAL: Tone and strength symmetric. PSYCH: Alert. Oriented to person, place, and time. Objective Data Vital Signs Vital Signs: Vital Signs - 24 hr 08/07/19 15:09 08/07/19 17:21 08/07/19 17:22 Temperature 98 F Pulse Rate 100 97 97 Respiratory Rate 19 15 Blood Pressure 126/81 127/86 Pulse Oximetry 100 99 08/07/19 18:06 08/07/19 18:57 08/07/19 20:21 Temperature Pulse Rate 79 86 89 Respiratory Rate 18 18 17 Blood Pressure 114/90 121/83 122/82 Pulse Oximetry 100 100 98 08/07/19 21:10 08/07/19 22:47 08/08/19 06:00 Temperature 97.9 F 97.2 F L Pulse Rate 79 79 80 Respiratory Rate 18 18 20 Blood Pressure 110/76 115/68 Pulse Oximetry 100 100 100 Intake/Output Intake/Output: Intake & Output 08/05/19 08/06/19 08/07/19 08/08/19 23:59 23:59 23:59 23:59 Intake Total 1999 1720 Output Total 400 Balance 1999 1320 Meds/Results Medications: Active Medications Generic Name Dose Route Start Last Admin Trade Name Freq PRN Reason Stop Dose Admin Diphenhydramine HCl 25 mg 08/08/19 01:50 08/08/19 09:29 Benadryl Inj IV PUSH 25 mg Q6H PRN Administration Itching Famotidine 20 mg 08/08/19 09:00 08/08/19 09:31 Pepcid Iv IV PUSH 20 mg Q12HR CHRISTINA Administration Folic Acid 1 mg 08/08/19 09:00 Folic Acid PO DAILY CHRISTINA Heparin Sodium (Beef Lung) 50 units 08/09/19 09:00 Heparin Flush 50 Units/5 Ml IV PUSH QAM CHRISTINA Heparin Sodium (Beef Lung) 50 units 08/08/19 09:12 Heparin Flush 50 Units/5 Ml IV PUSH PRN PRN after intermittent infusion Heparin Sodium (Beef Lung) 50 units 08/08/19 09:12 Heparin Flush 50 Units/5 Ml IV PUSH PRN PRN after blood draws Heparin Sodium (Porcine) 500 units 08/08/19 09:12 Heparin Sod Flush 100 Units/Ml IV PUSH PRN PRN see comments below Hydroxyurea 500 mg 08/08/19 02:15 08/08/19 09:29 Hydrea PO 500 mg Q12HR CHRISTINA Administration Lactated Ringer's 1,000 mls @ 125 mls/hr 08/07/19 19:25 08/08/19 05:38 Lr - Lactated Ringers Iv IV CONT 125 mls/hr .Q8H CHRISTINA Administration Morphine Sulfate 30 mg in 30 mls @ 0 mls/hr 08/08/19 01:50 08/08/19 03:57 Morphine Sulfate Product/Device Technologist IV CONT 1 mls/hr .Q0M PRN Administration APPRENTICE EMBALMER Management Protocol Per Protocol Sodium Chloride 250 mls @ 30 mls/hr 08/08/19 09:30 Normal Saline Iv IV CONT 08/08/19 17:49 .Q8H20M STA Ondansetron HCl 4 mg 08/07/19 19:22 Zofran Inj IV PUSH Q4H PRN Nausea Rivaroxaban 20 mg 08/08/19 17:00 Xarelto PO DAILY@1700 CHRISTINA Senna/Docusate Sodium 1 tab 08/08/19 21:00 Senokot S Tablet PO HS CHRISTINA Radiology Results: ITS Impressions Hip/Pelvis X-Ray 08/07/19 20:13 IMPRESSION: 1. Normal examination. Labs Labs: Laboratory Results - last 24 hr 08/07/1907/26
[2019-08-08] MEDS: FOLIC ACID 1 MG TABLET PO (11:23)
[2019-08-08] MEDS: RIVAROXABAN 20 MG TABLET PO (18:58)
[2019-08-08] MEDS: SODIUM CHLORIDE 0.9% IV 250 ML 30 ML IV CONT (21:14)
[2019-08-09] MEDS: LACTATED RINGERS 1,000 ML 125 ML IV CONT ×3 (03:47→20:03)
[2019-08-09 06:00] VITALS: BP 101/61; PULSE 85; RESP 20; TEMP 36.1; O2SAT 100
[2019-08-09 06:36] LABS: Hematocrit 29.1 % (37.0-47.0); Hemoglobin 9.7 g/dL (12.0-15.0); Immature Reticulocyte Fraction 8.6 % (3.0-15.9); Mean Corpuscular HGB Conc 33.3 g/dl (32-36); Mean Corpuscular Hemoglobin 23.1 pg (26-34); Mean Corpuscular Volume 69.3 fl (80-100); Platelet Count Result 256 k/mm3 (150-375); Red Cell Distribution Width 28.2 % (11.5-14.5); Reticulocyte Hemoglobin Conten 21.8 pg (28.2-35.7); Reticulocyte Percent 5.56 % (0.7-4.3); Reticulocytes Absolute 0.23 B/L (32.2-175.7); White Blood Count 13.1 K/mm3 (4.5-10.0)
[2019-08-09 06:49] LABS: Alanine Aminotransferase 20 U/L (4-35); Albumin Level 3.7 g/dL (3.5-5.1); Alkaline Phosphatase 62 U/L (38-126); Aspartate Amino Transferase 28 U/L (14-36); Bilirubin,Total 1.2 mg/dL (0.2-1.3); Blood Urea Nitrogen 9 mg/dL (7-17); Calcium 8.9 mg/dL (8.4-10.2); Carbon Dioxide 27 mmol/L (22-30); Chloride 100 mmol/L (98-107); Estimated CRCL calculation 164 ml/min; Estimated Glomerular Filt Rate > 60; Glucose 86 mg/dL (65-105); Lactate Dehydrogenase 554 U/L (313-618); Sodium 139 mmol/L (137-145)
[2019-08-09] MEDS: EUCERIN CREAM 120 GM JAR 1 APPLIC TOPICAL ×2 (07:08→09:00)
[2019-08-09 08:00] VITALS: PULSE 85; RESP 20; O2SAT 100
[2019-08-09] MEDS: HYDROXYUREA (*CHEMO) 500 MG CAPSULE PO ×2 (08:55→20:05)
[2019-08-09] MEDS: FOLIC ACID 1 MG TABLET PO (08:55)
[2019-08-09] MEDS: FAMOTIDINE 20 MG/2 ML VIAL IV PUSH ×2 (08:56→20:04)
--- NOTE | 2019-08-09 13:42 | PM.IMPN ---
Progress Note: A&P Assessment and Plan (1) Sickle cell crisis: Code(s): D57.00 - Hb-SS disease with crisis, unspecified Status: Acute Assessment and Plan: LDH improved from yesterday. Perecent retic count is elevated than weeks prior. Continue morphine TREATMENT TECHNICIAN at basal rate 2mg/hr; increase to 1 mg TREATMENT TECHNICIAN dose with 10 min lockout interval, 20mg limit every 4 hr. Continue home hydrea and folate. Monitor labs daily. Patient has seen Dr Bustillo at [place] in the past but came to [place] because she recently moved to [place] in May. She was too drowsy to drive to [place] ED after taking high doses of oxy last night so she comes to [place] ED instead. Discussed she may consider transferring care to Dr Dickerson if she is going to keep coming to [place] ED as it may be difficult to have providers at both facilities. Consulted Dr Dickerson - appreciate any input on pain control. Out of town and may be able to see the patient Sunday if she is still here. (2) History of pulmonary embolus (PE): Code(s): Z86.711 - Personal history of pulmonary embolism Status: Chronic Assessment and Plan: Diagnosed in May. Continue Xarelto. Subjective Date/time seen: 08/09/19 13:15 Interval history: Ms. Cardenas is a 24yo F admitted for sickle cell crisis. Her pain is worst in her left hip and thigh. She also has pain in her right leg and bilateral ribs which is not as bad as her left leg. She denies any chest pain or shortness of breath. No abdominal pain, nausea, or vomiting. Tolerating some PO intake but her appetite is poor. She reports her hands and feet are puffy which is new today but not abnormal for her during a crisis. Review of Systems Review of Systems: Narrative: Twelve systems were reviewed with pertinent positives and negatives as per HPI. Exam Narrative: Exam Narrative: General: Female sitting up in bed, uncomfortable in pain. HEENT: Normocephalic, EOMI, oral mucosa moist. Cardiovascular: Rate and rhythm are regular. Chest: Port-A-Cath in place right chest. Lungs clear to auscultation all [place]. Non-labored breathing. Abdomen: Soft, non-tender, non-distended, bowel sounds present. Extremities: Peripheral pulses intact. Mild bilateral hand and pedal edema. Neuro: No focal neurological deficits. Speech is clear. Objective Data Vital Signs Vital Signs: Last Vital Signs Temp 97 F L 08/09/19 06:00 Pulse 85 08/09/19 08:00 Resp 20 08/09/19 08:00 BP 101/61 08/09/19 06:00 Pulse Ox 100 08/09/19 08:00 Intake/Output Intake/Output: Intake & Output 08/06/19 08/07/19 08/08/19 08/09/19 23:59 23:59 23:59 23:59 Intake Total 1999 5040 2310 Output Total 950 1200 Balance 1999 4090 1110 Meds/Results Medications: Active Medications Generic Name Dose Route Start Last Admin Trade Name Freq PRN Reason Stop Dose Admin Diphenhydramine HCl 25 mg 08/08/19 01:50 08/09/19 09:08 Benadryl Inj IV PUSH 25 mg Q6H PRN Administration Itching Famotidine 20 mg 08/08/19 09:00 08/09/19 08:56 Pepcid Iv IV PUSH 20 mg Q12HR CHRISTINA Administration Folic Acid 1 mg 08/08/19 09:00 08/09/19 08:55 Folic Acid PO 1 mg DAILY CHRISTINA Administration Heparin Sodium (Beef Lung) 50 units 08/09/19 09:00 08/09/19 08:56 Heparin Flush 50 Units/5 Ml IV PUSH Not Given QAM CHRISTINA Heparin Sodium (Beef Lung) 50 units 08/08/19 09:12 Heparin Flush 50 Units/5 Ml IV PUSH PRN PRN after intermittent infusion Heparin Sodium (Beef Lung) 50 units 08/08/19 09:12 08/09/19 06:16 Heparin Flush 50 Units/5 Ml IV PUSH 50 units PRN PRN Administration after blood draws Heparin Sodium (Porcine) 500 units 08/08/19 09:12 Heparin Sod Flush 100 Units/Ml IV PUSH PRN PRN see comments below Hydroxyurea 500 mg 08/08/19 02:15 08/09/19 08:55 Hydrea PO 500 mg Q12HR CHRISTINA Administration L
[2019-08-09 14:00] VITALS: BP 110/76; PULSE 86; RESP 16; TEMP 36.2; O2SAT 100
[2019-08-09] MEDS: RIVAROXABAN 20 MG TABLET PO (17:41)
[2019-08-09] MEDS: KETOROLAC 15 MG/ML VIAL (*BKC) IV PUSH (17:41)
[2019-08-09] MEDS: SENNA/DOCUSATE SODIUM TABLET 1 TAB PO (20:04)
[2019-08-09 21:45] VITALS: BP 123/82; PULSE 90; RESP 16; TEMP 36.9; O2SAT 100
[2019-08-10] MEDS: LACTATED RINGERS 1,000 ML 125 ML IV CONT ×3 (04:11→20:22)
[2019-08-10 04:55] LABS: Hematocrit 27.3 % (37.0-47.0); Hemoglobin 8.8 g/dL (12.0-15.0); Mean Corpuscular HGB Conc 32.2 g/dl (32-36); Mean Corpuscular Hemoglobin 22.3 pg (26-34); Mean Corpuscular Volume 69.3 fl (80-100); Mean Platelet Volume 10.6 fl (7.4-10.4); Platelet Count Result 264 k/mm3 (150-375); Red Blood Count 3.94 M/mm3 (4.2-5.4); Red Cell Distribution Width 27.9 % (11.5-14.5); White Blood Count 10.8 K/mm3 (4.5-10.0)
[2019-08-10 05:14] LABS: Alanine Aminotransferase 19 U/L (4-35); Albumin Level 3.6 g/dL (3.5-5.1); Alkaline Phosphatase 62 U/L (38-126); Aspartate Amino Transferase 25 U/L (14-36); Bilirubin,Total 1.1 mg/dL (0.2-1.3); Blood Urea Nitrogen 8 mg/dL (7-17); Calcium 8.8 mg/dL (8.4-10.2); Carbon Dioxide 28 mmol/L (22-30); Chloride 100 mmol/L (98-107); Estimated CRCL calculation 164 ml/min; Estimated Glomerular Filt Rate > 60; Glucose 84 mg/dL (65-105); Lactate Dehydrogenase 496 U/L (313-618); Potassium 3.7 mmol/L (3.4-5.0); Sodium 137 mmol/L (137-145)
[2019-08-10 06:00] VITALS: BP 118/76; PULSE 82; RESP 18; TEMP 36.7; O2SAT 98
[2019-08-10] MEDS: FOLIC ACID 1 MG TABLET PO (09:16)
[2019-08-10] MEDS: FAMOTIDINE 20 MG/2 ML VIAL IV PUSH ×2 (09:18→20:23)
[2019-08-10] MEDS: HYDROXYUREA (*CHEMO) 500 MG CAPSULE PO ×2 (09:18→20:22)
--- NOTE | 2019-08-10 13:54 | PM.IMPN ---
Progress Note: A&P Assessment and Plan (1) Sickle cell crisis: Code(s): D57.00 - Hb-SS disease with crisis, unspecified Status: Acute Assessment and Plan: LDH improved from yesterday. Percent retic count is more elevated than weeks prior. Continue morphine ORDER DISPATCHER at basal rate 2mg/hr; 1 mg ORDER DISPATCHER dose with 10 min lockout interval, 20mg limit every 4 hr. Continue home hydrea and folate. Monitor labs daily. 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 She reported she was too drowsy to drive to [place] ED after taking high doses of oxy so she comes to [place] ED instead because it is closer. Previous notes in our record indicate she planned to transfer her care to Dr Dickerson, but does not seem to be the case. Discussed she may consider transferring care to Dr Dickerson if she is going to keep coming to [place] ED as it may be difficult to have providers at both facilities. Consulted Dr Dickerson - appreciate any input on pain control. Notified that he is out of town and can see her Sunday when he returns. (2) History of pulmonary embolus (PE): Code(s): Z86.711 - Personal history of pulmonary embolism Status: Chronic Assessment and Plan: Per patient, she was diagnosed with PE in 02/2019 and took Xarelto for 3 months. She reports as soon as she came off the Xarelto, she developed a blood clot in her neck near her port site . Will request records from [facility] in [place] where she received care for these. Continue Xarelto. Subjective Date/time seen: 08/10/19 13:45 Interval history: Ms. Cardenas is a 24yo F admitted for sickle cell crisis. She reports her pain is worse than yesterday. Her pain is most significant in her left hip and left thigh, which is a constant ache but occasionally with a sharp stabbing pain to left hip joint. Her right leg and bilateral ribs are also painful but not as bad as left leg. She denies chest pain or shortness of breath. She reports not eating much today and her appetite is poor, but denies nausea or vomiting. Notified by maintenance technician 3rd shift RN that the patient became very upset last night and this morning regarding flushing her port. RN noted that the patient was requesting saline flush through the port after each medication including the benadryl and RN explained to the patient that wasn't necessary or indicated. Patient explains to me this afternoon that she had a blood clot in May in a vein near her port, and that is why she obsesses over every medication being flushed, because she is worried she will get another blood clot near her port. I assured her that nursing will continue the heparin flushes per protocol and that, along with her Xarelto, puts her at low risk for forming a clot. Review of Systems Review of Systems: Narrative: Twelve systems were reviewed with pertinent positives and negatives as per HPI. Exam Narrative: Exam Narrative: General: Female resting supine in bed, uncomfortable in pain. HEENT: Normocephalic, EOMI, oral mucosa moist. Cardiovascular: Rate and rhythm are regular. Chest: Port-A-Cath in place right chest. Lungs clear to auscultation all maravilla. Non-labored breathing. Abdomen: Soft, non-tender, non-distended, bowel sounds present. Extremities: Peripheral pulses intact. Mild bilateral hand and pedal edema. Neuro: No focal neurological deficits. Speech is clear. Objective Data Vital Signs Vital Signs: Vital Signs - 24 hr 08/09/19 14:00 08/09/19 21:45 08/10/19 06:00 Temperature 97.1 F L 98.4 F 98.0 F Pulse Rate 86 90 82 Respiratory Rate 16 16 18 Blood Pressure 110/76 123/82 118/76 Pulse Oximetry 100 100 98 Intake/Output Intake/Output: Intake & Output 08/07/19 08/08/19 08/09/19 08/10/19 23:59 23:59 23:59 23:59 Intake Total 1999 5040 4150 2460 Output Total 950 2500 1300 Balance 1999
[2019-08-10 14:00] VITALS: BP 107/68; PULSE 97; RESP 16; TEMP 37; O2SAT 98
[2019-08-10 20:00] VITALS: RESP 12; O2SAT 100
[2019-08-10] MEDS: RIVAROXABAN 20 MG TABLET PO (20:22)
[2019-08-10] MEDS: SENNA/DOCUSATE SODIUM TABLET 1 TAB PO (21:29)
[2019-08-10 22:00] VITALS: BP 105/70; PULSE 85; RESP 18; TEMP 36.3; O2SAT 100
[2019-08-11] MEDS: LACTATED RINGERS 1,000 ML 125 ML IV CONT (04:21)
[2019-08-11 05:57] VITALS: BP 111/75; PULSE 76; RESP 16; TEMP 36.2; O2SAT 100
[2019-08-11 06:41] LABS: Hematocrit 28.3 % (37.0-47.0); Hemoglobin 9.1 g/dL (12.0-15.0); Immature Platelet Fraction Pct 5.1 % (0.9-11.2); Mean Corpuscular HGB Conc 32.2 g/dl (32-36); Mean Corpuscular Hemoglobin 22.3 pg (26-34); Mean Corpuscular Volume 69.4 fl (80-100); Platelet Count Result 260 k/mm3 (150-375); Red Blood Count 4.08 M/mm3 (4.2-5.4); Red Cell Distribution Width 28.5 % (11.5-14.5); White Blood Count 8.9 K/mm3 (4.5-10.0)
[2019-08-11 06:52] LABS: Alanine Aminotransferase 21 U/L (4-35); Alkaline Phosphatase 62 U/L (38-126); Aspartate Amino Transferase 29 U/L (14-36); Bilirubin,Total 1.1 mg/dL (0.2-1.3); Blood Urea Nitrogen 8 mg/dL (7-17); Calcium 9.2 mg/dL (8.4-10.2); Carbon Dioxide 28 mmol/L (22-30); Chloride 98 mmol/L (98-107); Estimated CRCL calculation 164 ml/min; Estimated Glomerular Filt Rate > 60; Glucose 93 mg/dL (65-105); Lactate Dehydrogenase 539 U/L (313-618); Potassium 3.7 mmol/L (3.4-5.0); Sodium 137 mmol/L (137-145)
[2019-08-11 07:07] LABS: Immature Reticulocyte Fraction 10.7 % (3.0-15.9); Reticulocyte Hemoglobin Conten 19.4 pg (28.2-35.7); Reticulocyte Percent 2.83 % (0.7-4.3)
[2019-08-11] MEDS: FOLIC ACID 1 MG TABLET PO (08:37)
[2019-08-11] MEDS: FAMOTIDINE 20 MG/2 ML VIAL IV PUSH ×2 (08:37→20:47)
[2019-08-11] MEDS: HYDROXYUREA (*CHEMO) 500 MG CAPSULE PO ×2 (08:37→20:47)
[2019-08-11] MEDS: EUCERIN CREAM 120 GM JAR 1 APPLIC TOPICAL (08:38)
[2019-08-11 08:46] VITALS: RESP 18; O2SAT 100
[2019-08-11 14:00] VITALS: BP 124/72; PULSE 91; RESP 16; TEMP 36.6; O2SAT 100
--- NOTE | 2019-08-11 14:31 | PM.IMPN ---
Progress Note: A&P Assessment and Plan (1) Sickle cell crisis: Code(s): D57.00 - Hb-SS disease with crisis, unspecified Status: Acute Assessment and Plan: LDH 539 today. Percent retic count is not showing up in the EMR due to IT issues but lab reports for today 08/11: Absolute retic: 0.10 Percent retic: 2.83 (improved) Immature retic fraction: 10.7% This morning morphine ONCOLOGY RN is still running at basal rate 2mg/hr; 1 mg ONCOLOGY RN dose with 10 min lockout interval, 20mg limit every 4 hr. She is agreeable to trying to transition to her oral regimen with IV morphine through breakthrough pain today. Continue home hydrea and folate. Monitor labs daily. 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 She reported she was too drowsy to drive to [place] ED after taking high doses of oxy so she comes to [place] ED instead because it is closer. Discussed she may consider transferring care to Dr Dickerson if she wishes to return to [place] ED as it may be difficult to have providers at both facilities. Consulted Dr Dickerson - appreciate any input on pain regimen. (2) History of pulmonary embolus (PE): Code(s): Z86.711 - Personal history of pulmonary embolism Status: Chronic Assessment and Plan: Per patient, she was diagnosed with PE in 02/2019 and took Xarelto for 3 months. She reports as soon as she came off the Xarelto, she developed a blood clot in her neck near her port site May 2019. Requested records from [facility] in [place] where she received care for these. Continue Xarelto. Subjective Date/time seen: 08/11/19 1300 Interval history: Ms. Cradenas is a 24yo F admitted for sickle cell crisis. She reports she feels better overall compared to when she came in, but her left leg pain is persistent. She has pain in her right leg and bilateral ribs but her pain is worst at her left hip and left thigh. Heating pad has helped this morning. She is agreeable to try stopping the morphine ONCOLOGY RN today to transition back to her home oral medications with IV morphine for breakthrough pain. She denies chest pain or shortness of breath. She has a poor appetite due to pain but denies any nausea or vomiting. Review of Systems Review of Systems: Narrative: Twelve systems were reviewed with pertinent positives and negatives as per HPI. Exam Narrative: Exam Narrative: General: Female sitting up in bed in no acute distress. HEENT: Normocephalic, EOMI, oral mucosa moist. Cardiovascular: Rate and rhythm are regular. Chest: Port-A-Cath in place right chest. Lungs clear to auscultation all maravilla. Non-labored breathing. Abdomen: Soft, non-tender, non-distended, bowel sounds present. Extremities: Peripheral pulses intact. No edema, erythema, or clubbing. Neuro: No focal neurological deficits. Speech is clear. Objective Data Vital Signs Vital Signs: Last Vital Signs Temp 97.9 F 08/11/19 14:00 Pulse 91 08/11/19 14:00 Resp 16 08/11/19 14:00 BP 124/72 08/11/19 14:00 Pulse Ox 100 08/11/19 14:00 Intake/Output Intake/Output: Intake & Output 08/08/19 08/09/19 08/10/19 08/11/19 23:59 23:59 23:59 23:59 Intake Total 5040 4150 4860 2386 Output Total 950 2500 2400 950 Balance 4090 1650 2460 1436 Meds/Results Medications: Active Medications Generic Name Dose Route Start Last Admin Trade Name Saida PRN Reason Stop Dose Admin Diphenhydramine HCl 25 mg 08/08/19 01:50 08/11/19 09:37 Benadryl Inj IV PUSH 25 mg Q6H PRN Administration Itching Famotidine 20 mg 08/08/19 09:00 08/11/19 08:37 Pepcid Iv IV PUSH 20 mg Q12HR CHRISTINA Administration Folic Acid 1 mg 08/08/19 09:00 08/11/19 08:37 Folic Acid PO 1 mg DAILY CHRISTINA Administration Heparin Sodium (Beef Lung) 50 units 08/09/19 09:00 08/11/19 08:37 Heparin Flus
[2019-08-11] MEDS: MORPHINE SULFATE 2 MG/ML INJ IV PUSH ×2 (16:32→20:47)
[2019-08-11] MEDS: RIVAROXABAN 20 MG TABLET PO (17:32)
[2019-08-11] MEDS: SENNA/DOCUSATE SODIUM TABLET 1 TAB PO (20:47)
[2019-08-11 22:00] VITALS: BP 117/66; PULSE 99; RESP 21; TEMP 36.9; O2SAT 100
[2019-08-12] MEDS: MORPHINE SULFATE 2 MG/ML INJ IV PUSH ×6 (00:55→22:36)
[2019-08-12 04:24] LABS: Haptoglobin 8 mg/dL (43-212)
[2019-08-12 05:06] LABS: Hematocrit 30.3 % (37.0-47.0); Hemoglobin 9.9 g/dL (12.0-15.0); Immature Reticulocyte Fraction 13.4 % (3.0-15.9); Mean Corpuscular HGB Conc 32.7 g/dl (32-36); Mean Corpuscular Hemoglobin 22.5 pg (26-34); Mean Corpuscular Volume 68.9 fl (80-100); Mean Platelet Volume 9.7 fl (7.4-10.4); Platelet Count Result 288 k/mm3 (150-375); Red Cell Distribution Width 28.7 % (11.5-14.5); Reticulocyte Hemoglobin Conten 21.8 pg (28.2-35.7); Reticulocyte Percent 4.61 % (0.7-4.3); White Blood Count 10.3 K/mm3 (4.5-10.0)
[2019-08-12 05:23] LABS: Alanine Aminotransferase 34 U/L (4-35); Albumin Level 4.4 g/dL (3.5-5.1); Alkaline Phosphatase 73 U/L (38-126); Aspartate Amino Transferase 46 U/L (14-36); Bilirubin,Total 1.2 mg/dL (0.2-1.3); Blood Urea Nitrogen 10 mg/dL (7-17); Calcium 8.9 mg/dL (8.4-10.2); Carbon Dioxide 25 mmol/L (22-30); Chloride 98 mmol/L (98-107); Estimated CRCL calculation 164 ml/min; Estimated Glomerular Filt Rate > 60; Glucose 90 mg/dL (65-105); Lactate Dehydrogenase 639 U/L (313-618); Potassium 3.9 mmol/L (3.4-5.0); Sodium 139 mmol/L (137-145)
[2019-08-12 06:00] VITALS: BP 101/60; PULSE 89; RESP 21; TEMP 37.1; O2SAT 100
[2019-08-12] MEDS: HYDROXYUREA (*CHEMO) 500 MG CAPSULE PO ×2 (08:51→20:37)
[2019-08-12] MEDS: FAMOTIDINE 20 MG/2 ML VIAL IV PUSH ×2 (08:51→20:36)
[2019-08-12] MEDS: FOLIC ACID 1 MG TABLET PO (08:51)
[2019-08-12] MEDS: EUCERIN CREAM 120 GM JAR 1 APPLIC TOPICAL (08:52)
[2019-08-12] MEDS: ONDANSETRON INJ 4 MG/2 ML VIAL IV PUSH (12:00)
[2019-08-12 14:00] VITALS: BP 107/66; PULSE 86; RESP 16; TEMP 37.1; O2SAT 100
--- NOTE | 2019-08-12 14:09 | CONS_ITS ---
DATE OF CONSULTATION: 08/11/2019 REFERRING PHYSICIAN: Sae Lora M.D. REASON FOR CONSULTATION: Sickle cell crisis. HISTORY OF PRESENTING ILLNESS: This is a 24-year-old female with history of sickle cell, hemoglobin SS disease along with history of pulmonary embolism. The patient was recently admitted to the hospital with a sickle cell crisis. She has been on Xarelto for pulmonary embolism. The patient now came into the hospital with complaint of generalized pain. She was taking her pain medication including long-acting OxyContin with oxycodone without much relief. She was previously followed by Dr. Kim in [place]. She was recommended to go to the ER because of generalized pain. She denies any fevers and chills. She denies any nausea or vomiting. She denies any bleeding and bruising. She was started on morphine TOWN JUSTICE with relief in pain control. REVIEW OF SYSTEMS: A 12-point review of system was reviewed and as per HPI, otherwise negative. PAST MEDICAL HISTORY: Sickle cell anemia with sickle cell crisis flare-ups, eczema, history of pulmonary embolism, and Port-A-Cath placement. PAST SURGICAL HISTORY: Appendectomy and cholecystectomy. FAMILY HISTORY: Sickle cell anemia and pulmonary embolism in the mother. SOCIAL HISTORY: The patient is single. She denies any history of drinking and smoking. HOME MEDICATIONS: Reviewed. ALLERGIES: REVIEWED. PHYSICAL EXAMINATION: GENERAL: This patient is a well-developed, well-nourished, female, in no apparent distress. Alert and oriented. VITAL SIGNS: Per nursing note. HEENT: Normocephalic, atraumatic. Clear oropharynx. LUNGS: Clear to auscultation bilaterally. CARDIOVASCULAR: Regular rate and rhythm. No murmurs. ABDOMEN: Soft, nontender, nondistended. Bowel sounds are positive in all 4 quadrants. No hepatosplenomegaly. EXTREMITIES: No edema. NEURO: Grossly intact. LABORATORY DATA: WBC 10.3, hemoglobin 9.9, MCV 68.9, platelet 288,000, reticulocyte count 4.61, creatinine 0.4, total bilirubin 1.2, LDH 639. ASSESSMENT AND PLAN: 1. Sickle cell anemia with frequent sickle cell crisis flare-ups. The patient was on OxyContin 20 mg q.12 hours along with oxycodone at home. OxyContin dose was increased to 40 mg q.12 hours as an outpatient without much relief and the patient was recommended to go to the ER for IV pain management. She has been seen by Dr. Kim previously. I have reviewed the labs. The patient is clinically feeling better and looks more stable. Morphine TOWN JUSTICE has been discontinued and she will start oral pain medication. Reticulocyte count has been coming down. Hemoglobin is stable. She should be able to go home the next day. I have instructed her to continue hydroxyurea 500 mg q.12 hours along with folic acid and her home pain medication on discharge. I have provided her my office information and she will follow up with me on an as needed basis. 2. Pulmonary embolism. The patient has been taking Xarelto 20 mg daily, which she will continue for long-term duration. MELI ALVAREZ M.D. CHAR FILTER OPERATOR CHAR FILTER OPERATOR D Nidhi [place]: Sur[place]
[2019-08-12] MEDS: RIVAROXABAN 20 MG TABLET PO (17:08)
[2019-08-12] MEDS: SENNA/DOCUSATE SODIUM TABLET 1 TAB PO (20:36)
[2019-08-12] MEDS: carisoprodoL 350 MG TABLET PO (20:36)
--- NOTE | 2019-08-12 20:59 | PM.IMPN ---
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 hgb has remained stable and pain is under control with oral meds. Will likely d/c tomorrow. Dr. Dickerson has been consulted. Continue home hydrea and folate. 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 (2) History of pulmonary embolus (PE): Code(s): Z86.711 - Personal history of pulmonary embolism Status: Chronic Assessment and Plan: ------Per patient, she was diagnosed with PE in 02/2019. Continue xarelto. Time Spent With Patient Time with patient: 25 - 35 minutes Subjective Date/time seen: 08/12/19 20:59 Interval history: Pt is a 24 y/o here for sickle cell anemia crisis. Pt was seen today and feels better today than she has. She has to take her medications regularly but overall is doing okay. She says that she takes carisoprodol at home sometimes which helps her use less narcotics. She denies SOB, CP, fevers, chills, abdominal pain, nausea, vomiting, or leg swelling. Review of Systems Review of Systems: All systems reviewed & are unremarkable except as noted in HPI and below Exam Narrative: Exam Narrative: General: Well developed well nourished patient in bed in [facility] HEENT: normocephalic Neck: supple Neuro: Alert and oriented x 4 CV:RRR Resp:CTA Abd: Soft, non distended. No pain to palpation. Positive bowel sounds Extremities: No swelling, erythema, or pain to palpation. Objective Data Vital Signs Vital Signs: Vital Signs - 24 hr 08/11/19 22:00 08/12/19 06:00 08/12/19 14:00 Temperature 98.5 F 98.7 F 98.7 F Pulse Rate 99 89 86 Respiratory Rate 21 H 21 H 16 Blood Pressure 117/66 101/60 107/66 Pulse Oximetry 100 100 100 Intake/Output Intake/Output: Intake & Output 08/09/19 08/10/19 08/11/19 08/12/19 23:59 23:59 23:59 23:59 Intake Total 4150 4860 3656 2030 Output Total 2500 2400 2200 2100 Balance 1650 1360 1456 -42 Meds/Results Medications: Active Medications Generic Name Dose Route Start Last Admin Trade Name Freq PRN Reason Stop Dose Admin Carisoprodol 350 mg 08/12/19 18:07 08/12/19 20:36 Soma PO 350 mg Q8HR PRN Administration BREAKTHROUGH PAIN Diphenhydramine HCl 25 mg 08/08/19 01:50 08/12/19 17:08 Benadryl Inj IV PUSH 25 mg Q6H PRN Administration Itching Famotidine 20 mg 08/08/19 09:00 08/12/19 20:36 Pepcid Iv IV PUSH 20 mg Q12HR CHRISTINA Administration Folic Acid 1 mg 08/08/19 09:00 08/12/19 08:51 Folic Acid PO 1 mg DAILY CHRISTINA Administration Heparin Sodium (Beef Lung) 50 units 08/09/19 09:00 08/12/19 08:52 Heparin Flush 50 Units/5 Ml IV PUSH 50 units QAM CHRISTINA Administration Heparin Sodium (Beef Lung) 50 units 08/08/19 09:12 Heparin Flush 50 Units/5 Ml IV PUSH PRN PRN after intermittent infusion Heparin Sodium (Beef Lung) 50 units 08/08/19 09:12 08/09/19 06:16 Heparin Flush 50 Units/5 Ml IV PUSH 50 units PRN PRN Administration after blood draws Heparin Sodium (Porcine) 500 units 08/08/19 09:12 Heparin Sod Flush 100 Units/Ml IV PUSH PRN PRN see comments below Hydroxyurea 500 mg 08/08/19 02:15 08/12/19 20:37 Hydrea PO 500 mg Q12HR CHRISTINA Administration Morphine Sulfate 2 mg 08/11/19 14:53 08/12/19 18:00 Morphine Sulfate Inj IV PUSH 2 mg Q4H PRN Administration Pain Rated 7-10 Multi-Ingred Cream/Lotion/Oil/Oint 1 applic 08/09/19 09:00 08/12/19 08:52 Minerin Creme TOPICAL 1 applic QAM CHRISTINA Administration Ondansetron HCl 4 mg 08/07/19 19:22 08/12/19 12:00 Zofran Inj IV PUSH 4 mg Q4H PRN Administration Nausea Oxycodone HCl 20 mg 08/11/19 14:51 08/12/19 16:26 Roxicodone Ir Tablet PO
[2019-08-12 22:37] VITALS: BP 114/88; PULSE 107; RESP 20; TEMP 36.1; O2SAT 98
[2019-08-13] MEDS: MORPHINE SULFATE 2 MG/ML INJ IV PUSH ×3 (02:37→11:13)
--- NOTE | 2019-08-13 02:40 | PC.NURSE ---
IN ROOM WITH PT FOR PAIN MED AND CELL PHONE ALARM WENT OFF WITH NAME OF PAIN MEDICATION DUE
[2019-08-13] MEDS: carisoprodoL 350 MG TABLET PO (04:33)
[2019-08-13 05:07] LABS: Hematocrit 30.8 % (37.0-47.0); Hemoglobin 10.1 g/dL (12.0-15.0); Mean Corpuscular HGB Conc 32.8 g/dl (32-36); Mean Corpuscular Hemoglobin 22.7 pg (26-34); Mean Corpuscular Volume 69.4 fl (80-100); Mean Platelet Volume 9.8 fl (7.4-10.4); Platelet Count Result 291 k/mm3 (150-375); Red Blood Count 4.44 M/mm3 (4.2-5.4); White Blood Count 9.5 K/mm3 (4.5-10.0)
[2019-08-13 05:24] LABS: Alanine Aminotransferase 45 U/L (4-35); Albumin Level 4.6 g/dL (3.5-5.1); Alkaline Phosphatase 85 U/L (38-126); Aspartate Amino Transferase 51 U/L (14-36); Bilirubin,Total 1.1 mg/dL (0.2-1.3); Blood Urea Nitrogen 12 mg/dL (7-17); Calcium 9.1 mg/dL (8.4-10.2); Carbon Dioxide 22 mmol/L (22-30); Chloride 100 mmol/L (98-107); Estimated CRCL calculation 164 ml/min; Estimated Glomerular Filt Rate > 60; Glucose 93 mg/dL (65-105); Lactate Dehydrogenase 666 U/L (313-618); Potassium 3.9 mmol/L (3.4-5.0); Sodium 150 mmol/L (137-145)
[2019-08-13 06:25] VITALS: BP 116/75; PULSE 91; RESP 18; TEMP 36.7; O2SAT 100
[2019-08-13 08:00] VITALS: RESP 18
[2019-08-13] MEDS: HYDROXYUREA (*CHEMO) 500 MG CAPSULE PO (08:59)
[2019-08-13] MEDS: FAMOTIDINE 20 MG/2 ML VIAL IV PUSH (08:59)
[2019-08-13] MEDS: FOLIC ACID 1 MG TABLET PO (08:59)
[2019-08-13] MEDS: EUCERIN CREAM 120 GM JAR 1 APPLIC TOPICAL (09:00)
[2019-08-13 10:48] LABS: Sodium 139 mmol/L (137-145)
[2019-08-13] MEDS: polyethylene glycoL 3350 17 GM POWD.PACK PO (13:13)
--- NOTE | 2019-08-13 13:55 | PM.DS ---
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 Vitals in the ER were stable. White blood cell count initially elevated 11.4, hemoglobin 9.9, hematocrit 30.6. Immature retake fraction elevated 19.5. Hip x-ray normal. UA negative. No respiratory symptoms and CXR was done 10 days prior which was normal. Patient was in intractable pain and was admitted to the hospitalist service and seen by hematology and the hospitalist. She required IV pain medication for several days and was able to be weaned down to her normal dose of oral medications. She has history of PE and does take Xarelto but had no shortness of breath. Overall, her leg pain and arm pain improved and she was eating a normal diet. She states she was ready for discharge. The patient was educated about the worrisome signs and symptoms come back to emergency room for and was discharged stable condition. She is to follow up with Dr. Dickerson. Status at Discharge Functional status at discharge: independent ambulation Overall status at discharge: patient is back to baseline Time Spent with Patient Time attestation: Total time spent providing and/or coordinating discharge services:32 min Time spent: Greater than 30 minutes Exam Narrative: Exam Narrative: General: Well developed well nourished patient in bed in [facility] HEENT: normocephalic Neck: supple Neuro: Alert and oriented x 4 CV:RRR Resp:CTA Abd: Soft, non distended. No pain to palpation. Positive bowel sounds Extremities: No swelling, erythema, or pain to palpation. DS: Data Data Completed and Pending Labs on day of discharge: Labs from last 24 hours 08/13/19 08/13/19 08/13/19 10:21 04:50 04:50 WBC 9.5 RBC 4.44 Hgb 10.1 L Hct 30.8 L MCV 69.4 L MCH 22.7 L MCHC 32.8 RDW 29.0 H Plt Count 291 MPV 9.8 Sodium 139 150 H Potassium 3.9 Chloride 100 Carbon Dioxide 22 BUN 12 Creatinine 0.40 L Estim Creat Clear Calc 164 Estimated GFR > 60 Glucose 93 Calcium 9.1 Total Bilirubin 1.1 AST 51 H ALT 45 H Alkaline Phosphatase 85 Lactate Dehydrogenase 666 H Total Protein 9.0 H Albumin 4.6 Discharge Plan Discharge Attending physician on discharge: Clay Jacobs Consulting providers: Yonis Messer ; Grayson Dickerson Discharging Clinician: Doris Ferguson Patient Disposition: Home, Self-Care Activity: as tolerated Diet: regular Discharge Instructions: -No driving on the [place]/Carisoprodol muscle relaxer. -follow up with your transportation escort in 1-2 weeks about this stay -worrisome signs and symptoms to come back to the ER for: fevers 100.4 or greater, chest pain, shortness of breath, uncontrolled pain, or any other worrisome symptom. Patient Instructions: Pulmonary Embolism (DC), Narcotic Pain Management (DC) Stand Alone Forms: General Discharge Information, Work/School Release IP Follow-up/Referrals: Grayson Dickerson MD [Physician] - 1 Week Discharge Medications: New carisoprodol 350 mg Tablet 350 mg PO Q8HR PRN (Reason: BREAKTHROUGH PAIN) Qty: 10 RF: 0 Continued hydroxyurea 500 mg Capsule 500 mg PO Q12H RF: 0 folic acid 1 mg Tablet 1 mg PO DAILY RF: 0 oxycodone 20 mg Tablet 20 mg PO Q4H PRN (Reason: Pain) RF: 0 oxycodone [OxyContin] 20 mg Tablet,Oral Only,Ext.Rel.12 Hr 20 mg PO Q12H RF: 0 Xarelto 20 mg Tablet 20 mg PO DAILY@1700 Qty:
[2019-08-13] MEDS: HEPARIN SOD FLUSH 500 UNITS/5 ML SYRINGE IV PUSH (14:29)
== END 2019-08-13 15:00 | disposition home or self-care (01) | DRG 812 ==
LOC: ANHED 19:22 → ANH2MED 19:44
PROVIDERS: Emergency Medicine Emergency Medical Services; Internal Medicine; Admitting Provider Internal Medicine; Emergency Provider Emergency Medicine; Visit Provider Physician Assistant
DX: D57.00 Hb-SS disease with crisis, unspecified (principal); L30.9 Dermatitis, unspecified; Z86.711 Personal history of pulmonary embolism; Z90.49 Acquired absence of other specified parts of digestive tract; Z87.891 Personal history of nicotine dependence; Z79.01 Long term (current) use of anticoagulants; Z23 Encounter for immunization
CPT/HCPCS: 36415; 36430; 73521; 80053; 81003; 83010; 83605; 83615; 84295; 85025; 85027; 85046; 85055; 86850; 86900; 86901; 86923; 90471; 90686; 96361; 96365; 96366; 96374; 96375; 96376; 99284; 99285; A9270; G0008; G0378; J1170; J1200; J1642; J1885; J2270; J2405; J7050; J7120; P9016

== ENCOUNTER 2019-08-18 18:21 | Inpatient (IN) | payer MEDICARE, MEDICAID, SELFPAY ==
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
[2019-08-18 18:57] VITALS: BP 130/89; PULSE 102; RESP 18; TEMP 36.8; O2SAT 100
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
[2019-08-18 20:07] VITALS: BP 115/75; PULSE 86; RESP 20; O2SAT 99
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
[2019-08-18] MEDS: MORPHINE SULFATE 4 MG/ML INJ 6 MG IV PUSH ×2 (20:39→22:31)
[2019-08-18] MEDS: SODIUM CHLORIDE 0.9% IV 1,000 ML 999 ML IV CONT (20:39)
[2019-08-18 20:48] LABS: Hematocrit 25.6 % (37.0-47.0); Hemoglobin 8.3 g/dL (12.0-15.0); Immature Reticulocyte Fraction 30.2 % (3.0-15.9); Mean Corpuscular HGB Conc 32.4 g/dl (32-36); Mean Corpuscular Hemoglobin 22.7 pg (26-34); Mean Corpuscular Volume 69.9 fl (80-100); Mean Platelet Volume 9.5 fl (7.4-10.4); Platelet Count Result 288 k/mm3 (150-375); Red Blood Count 3.66 M/mm3 (4.2-5.4); Reticulocyte Hemoglobin Conten 22.7 pg (28.2-35.7); Reticulocyte Percent 7.67 % (0.7-4.3); Reticulocytes Absolute 0.28 B/L (32.2-175.7); White Blood Count 15.2 K/mm3 (4.5-10.0)
[2019-08-18 20:55] LABS: Lactate Dehydrogenase 660 U/L (313-618)
[2019-08-18 21:18] LABS: Eosinophils Absolute Manual 0.15 K/mm3 (0.02-0.5); Eosinophils Percent Manual 1 % (0-4); Lymphocytes Absolute Manual 4.71 K/mm3 (1.1-4.5); Monocytes Absolute Manual 1.36 K/mm3 (0.1-0.90); Monocytes Percent Manual 9 % (3-9); Neutrophils Percent Manual 59 % (46-73); Total Cells Counted 100
[2019-08-18 21:21] LABS: Platelet Estimate Adequate (Adequate); Schistocytes 2+ (NORMAL); Stomatocytes 2+ (NORMAL); Target Cells 3+ (NORMAL)
[2019-08-18 21:22] LABS: Nucleated Red Blood Cells 64 %
[2019-08-18 22:17] VITALS: BP 114/72; PULSE 81; RESP 16; O2SAT 97
[2019-08-19 00:38] VITALS: BP 105/63; PULSE 80; RESP 16; TEMP 37; O2SAT 98
--- NOTE | 2019-08-19 01:17 | ADMGEN ---
This patient, Jenny Cardenas, was admitted to 2 Medical Room 242-. Patient/family oriented to hospital policies and general routines including ID bracelet, bed and alarms, visiting hours, pain management, procedures, bathroom and other care routines, personal items, smoking policy, room service/diet, and visiting hours. Valuables list has been completed. Information on how to activate the Rapid Response Team has been discussed. Patient/Family are encouraged to report perceived risks to care and to ask questions if they do not understand what they are told or what they should do.
[2019-08-19] MEDS: SODIUM CHLORIDE 0.9% IV 1,000 ML 125 ML IV CONT ×3 (01:22→17:23)
[2019-08-19] MEDS: MORPHINE SULFATE 4 MG/ML INJ IV PUSH ×8 (01:25→22:52)
[2019-08-19 02:00] VITALS: BP 118/72; PULSE 76; RESP 21; TEMP 36.2; O2SAT 100; BMI 19.9
[2019-08-19 06:00] VITALS: BP 103/80; PULSE 91; RESP 21; TEMP 36.2; O2SAT 100
[2019-08-19] MEDS: FOLIC ACID 1 MG TABLET PO (08:35)
[2019-08-19] MEDS: HYDROXYUREA (*CHEMO) 500 MG CAPSULE PO ×2 (08:35→20:52)
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
[2019-08-19 10:49] LABS: Hematocrit 24.1 % (37.0-47.0); Mean Corpuscular HGB Conc 33.2 g/dl (32-36); Mean Corpuscular Hemoglobin 22.9 pg (26-34); Mean Corpuscular Volume 69.1 fl (80-100); Mean Platelet Volume 9.5 fl (7.4-10.4); Platelet Count Result 263 k/mm3 (150-375); Red Blood Count 3.49 M/mm3 (4.2-5.4); Red Cell Distribution Width 28.4 % (11.5-14.5); White Blood Count 9.1 K/mm3 (4.5-10.0)
[2019-08-19 11:00] LABS: Lactate Dehydrogenase 607 U/L (313-618)
[2019-08-19 14:00] VITALS: BP 101/56; PULSE 81; RESP 14; TEMP 36.3; O2SAT 100
[2019-08-19] MEDS: RIVAROXABAN 20 MG TABLET PO (16:27)
[2019-08-19 22:22] VITALS: BP 111/96; PULSE 100; RESP 20; TEMP 36.3; O2SAT 100
[2019-08-20] MEDS: HYDROMORPHONE HCL 1 MG/ML INJ IV PUSH ×4 (02:08→18:35)
[2019-08-20] MEDS: SODIUM CHLORIDE 0.9% IV 1,000 ML 125 ML IV CONT ×3 (02:18→18:31)
[2019-08-20] MEDS: MORPHINE SULFATE 4 MG/ML INJ IV PUSH ×4 (05:32→20:28)
[2019-08-20 05:55] VITALS: BP 105/67; PULSE 63; RESP 16; TEMP 35.9; O2SAT 98
[2019-08-20 06:01] LABS: Basophils Absolute Auto 0.1 K/mm3 (0.0-0.1); Basophils Percent Auto 0.6 % (0.2-1.2); Eosinophils Absolute Auto 0.4 K/mm3 (0-0.3); Eosinophils Percent Auto 3.2 % (0-4.4); Hematocrit 24.2 % (37.0-47.0); Immature Granulocyte Absolute 0.13 K/mm3 (0.00-0.031); Immature Granulocyte Percent A 1.2 % (0-0.5); Immature Reticulocyte Fraction 22.7 % (3.0-15.9); Lymphocytes Absolute Auto 4.57 K/mm3 (0.9-3.2); Lymphocytes Percent Auto 41.2 % (18.3-44.2); Mean Corpuscular HGB Conc 33.1 g/dl (32-36); Mean Corpuscular Hemoglobin 22.9 pg (26-34); Mean Corpuscular Volume 69.1 fl (80-100); Mean Platelet Volume 9.4 fl (7.4-10.4); Monocytes Percent Auto 9.1 % (2.6-8.5); Neutrophils Percent Auto 44.7 % (45.5-73.1); Nucleated Red Blood Cells Absolute Auto 4.6 K/mm3 (0.0-0.012); Nucleated Red Blood Cells Perc 41.4 % (0.0-0.2); Platelet Count Result 273 k/mm3 (150-375); Red Cell Distribution Width 28.6 % (11.5-14.5); Reticulocyte Hemoglobin Conten 20.5 pg (28.2-35.7); Reticulocyte Percent 11.31 % (0.7-4.3); White Blood Count 11.1 K/mm3 (4.5-10.0)
[2019-08-20 06:26] LABS: Alanine Aminotransferase 27 U/L (4-35); Albumin Level 3.6 g/dL (3.5-5.1); Alkaline Phosphatase 69 U/L (38-126); Aspartate Amino Transferase 28 U/L (14-36); Bilirubin,Total 0.9 mg/dL (0.2-1.3); Blood Urea Nitrogen 6 mg/dL (7-17); Calcium 8.4 mg/dL (8.4-10.2); Carbon Dioxide 22 mmol/L (22-30); Chloride 103 mmol/L (98-107); Estimated CRCL calculation 213 ml/min; Estimated Glomerular Filt Rate > 60; Glucose 91 mg/dL (65-105); Lactate Dehydrogenase 567 U/L (313-618); Potassium 3.6 mmol/L (3.4-5.0); Sodium 138 mmol/L (137-145)
[2019-08-20 07:14] LABS: Platelet Estimate Adequate (Adequate)
[2019-08-20 07:15] LABS: Hypochromasia 3+ (NORMAL); Polychromasia 2+ (NORMAL); Sickle Cells 1+ (NORMAL); Target Cells 3+ (NORMAL)
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
[2019-08-20] MEDS: HYDROXYUREA (*CHEMO) 500 MG CAPSULE PO ×2 (09:07→20:28)
[2019-08-20] MEDS: LORATADINE 5 MG TABLET PO (09:07)
[2019-08-20] MEDS: FOLIC ACID 1 MG TABLET PO (09:07)
[2019-08-20] MEDS: ACETAMINOPHEN 325 MG TABLET 650 MG PO (09:08)
[2019-08-20 14:00] VITALS: BP 120/72; PULSE 83; RESP 16; TEMP 36.2; O2SAT 100
[2019-08-20] MEDS: RIVAROXABAN 20 MG TABLET PO (18:32)
[2019-08-20 22:21] VITALS: BP 95/44; PULSE 82; RESP 16; TEMP 36.4; O2SAT 95
[2019-08-21] MEDS: HYDROMORPHONE HCL 1 MG/ML INJ IV PUSH ×2 (00:29→06:16)
[2019-08-21] MEDS: SODIUM CHLORIDE 0.9% IV 1,000 ML 125 ML IV CONT ×3 (03:17→19:13)
[2019-08-21] MEDS: MORPHINE SULFATE 4 MG/ML INJ IV PUSH ×3 (03:17→22:31)
[2019-08-21 05:58] VITALS: BP 101/61; PULSE 78; RESP 16; TEMP 36.1; O2SAT 100
[2019-08-21 06:31] LABS: Basophils Absolute Auto 0.1 K/mm3 (0.0-0.1); Basophils Percent Auto 0.4 % (0.2-1.2); Eosinophils Absolute Auto 0.4 K/mm3 (0-0.3); Eosinophils Percent Auto 3.2 % (0-4.4); Hematocrit 25.2 % (37.0-47.0); Hemoglobin 8.1 g/dL (12.0-15.0); Immature Granulocyte Absolute 0.12 K/mm3 (0.00-0.031); Immature Reticulocyte Fraction 18.8 % (3.0-15.9); Lymphocytes Absolute Auto 3.92 K/mm3 (0.9-3.2); Lymphocytes Percent Auto 33.6 % (18.3-44.2); Mean Corpuscular HGB Conc 32.1 g/dl (32-36); Mean Corpuscular Hemoglobin 22.6 pg (26-34); Mean Corpuscular Volume 70.4 fl (80-100); Mean Platelet Volume 9.5 fl (7.4-10.4); Monocytes Absolute Auto 1.2 K/mm3 (0.1-0.6); Monocytes Percent Auto 9.9 % (2.6-8.5); Neutrophils Percent Auto 51.9 % (45.5-73.1); Nucleated Red Blood Cells Absolute Auto 3.8 K/mm3 (0.0-0.012); Nucleated Red Blood Cells Perc 32.6 % (0.0-0.2); Platelet Count Result 296 k/mm3 (150-375); Red Blood Count 3.58 M/mm3 (4.2-5.4); Red Cell Distribution Width 28.1 % (11.5-14.5); Reticulocyte Hemoglobin Conten 20.9 pg (28.2-35.7); Reticulocyte Percent 12.34 % (0.7-4.3); Reticulocytes Absolute 0.44 B/L (32.2-175.7); White Blood Count 11.7 K/mm3 (4.5-10.0)
[2019-08-21 06:46] LABS: Blood Urea Nitrogen 6 mg/dL (7-17); Calcium 8.5 mg/dL (8.4-10.2); Carbon Dioxide 23 mmol/L (22-30); Chloride 102 mmol/L (98-107); Estimated CRCL calculation 213 ml/min; Estimated Glomerular Filt Rate > 60; Glucose 93 mg/dL (65-105); Lactate Dehydrogenase 580 U/L (313-618); Magnesium 1.8 mg/dL (1.6-2.3); Potassium 3.6 mmol/L (3.4-5.0); Sodium 140 mmol/L (137-145)
[2019-08-21 07:01] LABS: Platelet Estimate Adequate (Adequate); Sickle Cells 1+ (NORMAL)
[2019-08-21 07:02] LABS: Hypochromasia 3+ (NORMAL); Polychromasia 2+ (NORMAL); Stomatocytes 2+ (NORMAL); Target Cells 3+ (NORMAL)
[2019-08-21] MEDS: HYDROXYUREA (*CHEMO) 500 MG CAPSULE PO ×2 (08:58→20:45)
[2019-08-21] MEDS: POTASSIUM CHLORIDE 20 MEQ PACKET (FOR LIQUID) 40 MEQ PO (08:59)
[2019-08-21] MEDS: FOLIC ACID 1 MG TABLET PO (08:59)
[2019-08-21] MEDS: LORATADINE 5 MG TABLET PO (08:59)
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
[2019-08-21] MEDS: MORPHINE SULFATE 2 MG/ML INJ IV PUSH (10:55)
[2019-08-21 14:00] VITALS: BP 106/76; PULSE 82; RESP 18; TEMP 36.9; O2SAT 100
[2019-08-21] MEDS: carisoprodoL 350 MG TABLET PO (15:19)
[2019-08-21] MEDS: RIVAROXABAN 20 MG TABLET PO (17:07)
[2019-08-21 22:00] VITALS: BP 100/61; PULSE 91; RESP 16; TEMP 37.1; O2SAT 100
[2019-08-22] MEDS: carisoprodoL 350 MG TABLET PO (01:13)
[2019-08-22] MEDS: MORPHINE SULFATE 4 MG/ML INJ IV PUSH ×4 (02:57→23:05)
[2019-08-22] MEDS: SODIUM CHLORIDE 0.9% IV 1,000 ML 125 ML IV CONT ×3 (03:00→19:40)
[2019-08-22 05:44] LABS: Basophils Absolute Auto 0.1 K/mm3 (0.0-0.1); Basophils Percent Auto 0.6 % (0.2-1.2); Eosinophils Absolute Auto 0.4 K/mm3 (0-0.3); Eosinophils Percent Auto 3.1 % (0-4.4); Hematocrit 25.4 % (37.0-47.0); Hemoglobin 8.2 g/dL (12.0-15.0); Immature Granulocyte Absolute 0.18 K/mm3 (0.00-0.031); Immature Granulocyte Percent A 1.6 % (0-0.5); Immature Reticulocyte Fraction 16.4 % (3.0-15.9); Lymphocytes Absolute Auto 4.26 K/mm3 (0.9-3.2); Lymphocytes Percent Auto 36.9 % (18.3-44.2); Mean Corpuscular HGB Conc 32.3 g/dl (32-36); Mean Corpuscular Hemoglobin 22.7 pg (26-34); Mean Corpuscular Volume 70.2 fl (80-100); Mean Platelet Volume 9.4 fl (7.4-10.4); Monocytes Absolute Auto 1.2 K/mm3 (0.1-0.6); Monocytes Percent Auto 10.4 % (2.6-8.5); Neutrophils Absolute Auto 5.5 K/mm3 (1.3-6.7); Neutrophils Percent Auto 47.4 % (45.5-73.1); Nucleated Red Blood Cells Absolute Auto 3.2 K/mm3 (0.0-0.012); Nucleated Red Blood Cells Perc 28.1 % (0.0-0.2); Platelet Count Result 254 k/mm3 (150-375); Red Blood Count 3.62 M/mm3 (4.2-5.4); Reticulocyte Hemoglobin Conten 21.5 pg (28.2-35.7); Reticulocyte Percent 11.25 % (0.7-4.3); Reticulocytes Absolute 0.41 B/L (32.2-175.7); White Blood Count 11.5 K/mm3 (4.5-10.0)
[2019-08-22 06:00] VITALS: BP 94/57; PULSE 76; RESP 16; TEMP 36.7; O2SAT 100
[2019-08-22 06:29] LABS: Hypochromasia 2+ (NORMAL); Platelet Estimate Adequate (Adequate); Polychromasia 1+ (NORMAL); Sickle Cells 1+ (NORMAL); Target Cells 3+ (NORMAL)
[2019-08-22 07:28] LABS: Blood Urea Nitrogen 8 mg/dL (7-17); Calcium 8.9 mg/dL (8.4-10.2); Carbon Dioxide 25 mmol/L (22-30); Chloride 104 mmol/L (98-107); Estimated CRCL calculation 213 ml/min; Estimated Glomerular Filt Rate > 60; Glucose 92 mg/dL (65-105); Magnesium 1.8 mg/dL (1.6-2.3); Potassium 3.5 mmol/L (3.4-5.0); Sodium 138 mmol/L (137-145)
[2019-08-22 07:34] LABS: Lactate Dehydrogenase 633 U/L (313-618)
[2019-08-22] MEDS: FOLIC ACID 1 MG TABLET PO (08:16)
[2019-08-22] MEDS: HYDROXYUREA (*CHEMO) 500 MG CAPSULE PO ×2 (08:16→20:33)
[2019-08-22] MEDS: LORATADINE 5 MG TABLET PO (08:16)
[2019-08-22] MEDS: POTASSIUM CHLORIDE 20 MEQ PACKET (FOR LIQUID) 40 MEQ PO (08:20)
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
[2019-08-22 14:00] VITALS: BP 109/70; PULSE 96; RESP 14; TEMP 37.3; O2SAT 99
[2019-08-22] MEDS: RIVAROXABAN 20 MG TABLET PO (16:23)
[2019-08-22 22:00] VITALS: BP 104/55; PULSE 79; RESP 16; TEMP 36.8; O2SAT 100
[2019-08-23] MEDS: MORPHINE SULFATE 4 MG/ML INJ IV PUSH (03:48)
[2019-08-23] MEDS: SODIUM CHLORIDE 0.9% IV 1,000 ML 125 ML IV CONT (03:49)
[2019-08-23 06:00] VITALS: BP 98/48; PULSE 74; RESP 16; TEMP 36.7; O2SAT 100
[2019-08-23 06:27] LABS: Mean Corpuscular HGB Conc 32.4 g/dl (32-36); Mean Corpuscular Hemoglobin 22.6 pg (26-34); Mean Corpuscular Volume 69.8 fl (80-100); Mean Platelet Volume 9.5 fl (7.4-10.4); Platelet Count Result 267 k/mm3 (150-375); Red Blood Count 3.67 M/mm3 (4.2-5.4); Red Cell Distribution Width 27.4 % (11.5-14.5)
[2019-08-23 06:44] LABS: Blood Urea Nitrogen 7 mg/dL (7-17); Calcium 8.9 mg/dL (8.4-10.2); Carbon Dioxide 26 mmol/L (22-30); Chloride 105 mmol/L (98-107); Estimated CRCL calculation 213 ml/min; Estimated Glomerular Filt Rate > 60; Glucose 90 mg/dL (65-105); Magnesium 1.8 mg/dL (1.6-2.3); Potassium 3.5 mmol/L (3.4-5.0); Sodium 139 mmol/L (137-145)
[2019-08-23 07:06] LABS: Hematocrit 25.6 % (37.0-47.0); Hemoglobin 8.3 g/dL (12.0-15.0); White Blood Count 10.1 K/mm3 (4.5-10.0)
[2019-08-23 07:07] LABS: Immature Reticulocyte Fraction 15.8 % (3.0-15.9); Reticulocyte Hemoglobin Conten 19.2 pg (28.2-35.7); Reticulocyte Percent 8.21 % (0.7-4.3); Reticulocytes Absolute 0.24 B/L (32.2-175.7)
[2019-08-23 07:27] LABS: Lactate Dehydrogenase 574 U/L (313-618)
[2019-08-23] MEDS: HYDROXYUREA (*CHEMO) 500 MG CAPSULE PO (08:07)
[2019-08-23] MEDS: FOLIC ACID 1 MG TABLET PO (08:07)
[2019-08-23] MEDS: POTASSIUM CHLORIDE 20 MEQ PACKET (FOR LIQUID) 40 MEQ PO (08:08)
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
[2019-08-23] MEDS: LORATADINE 5 MG TABLET PO (09:05)
[2019-08-23] MEDS: HEPARIN SOD FLUSH 500 UNITS/5 ML SYRINGE IV PUSH (10:14)
== END 2019-08-23 10:55 | disposition home or self-care (01) | DRG 812 ==
LOC: ANHED 08-19 00:19 → ANH2MED 08-19 01:06
PROVIDERS: Physician Assistant; Admitting Provider Internal Medicine; Emergency Provider Emergency Medicine; Visit Provider Family Medicine
DX: D57.00 Hb-SS disease with crisis, unspecified (principal); Z86.711 Personal history of pulmonary embolism; Y04.0XXA Assault by unarmed brawl or fight, initial encounter; Y04.2XXA Assault by strike against or bumped into by another person, initial encounter; S00.90XA Unspecified superficial injury of unspecified part of head, initial encounter; S30.92XA Unspecified superficial injury of abdominal wall, initial encounter; S30.91XA Unspecified superficial injury of lower back and pelvis, initial encounter; S70.922A Unspecified superficial injury of left thigh, initial encounter; S70.921A Unspecified superficial injury of right thigh, initial encounter
CPT/HCPCS: 36415; 71046; 72100; 73521; 80048; 80053; 83615; 83735; 85025; 85027; 85046; 87040; 96361; 96374; 96375; 96376; 99285; A9270; J1170; J1200; J1642; J2270; J7030